=== PATIENT | female | born 1940 | race Hispanic/Latino ===

== ENCOUNTER 2016-10-15 01:48 | Day surgery (SDC) | payer MEDICARE, OTHER ==
[~2016-10-15] VITALS: Ht 157.5 cm; Wt 65.7 kg
[~2016-10-15 01:48] MED LIST: ASAEC PO; OMPR20CCR PO
[2016-10-15] MEDS ORDERED: AMLO2.5T PO (10:23)
[2016-10-15] MEDS ORDERED: CLON0.1T PO (10:23)
[2016-10-15] MEDS ORDERED: ATOR20TA PO (10:23)
[2016-10-15] MEDS ORDERED: CETI5TAB28 PO (10:23)
[2016-10-15] MEDS ORDERED: ASPI-973 PO (10:23)
[2016-10-15] MEDS ORDERED: RIVA20TA PO (10:23)
[2016-10-15] MEDS ORDERED: CARV12.52 PO (10:23)
[2016-10-15] MEDS ORDERED: CHOL200025 PO (10:23)
[2016-10-15] MEDS ORDERED: CARV25TA2 PO (10:23)
[2016-10-15] MEDS ORDERED: FLUT9.9S NOSTRIL (10:23)
[2016-10-15 11:57] LABS: BASOPHILS % (AUTO) 1.7 % (0-3); MONOCYTES % (AUTO) 8.5 % (4-12); Mean Corpuscular Hemoglobin 28.8 pg (27.0-35.0); Mean Corpuscular Volume 86.8 fL (81-100); NEUTROPHILS % (AUTO) 64.5 % (40-74); Platelet Count 242 bil/L (150-400)
[2016-10-15] MEDS ORDERED: Heparin 10,000 Unit/1,000 mL NS Premix IV ONE (11:57)
[2016-10-15] MEDS ORDERED: Heparin 1,000 Units/500 mL NS Premix IV ONE (11:57)
[2016-10-15] MEDS ORDERED: FERR324T5 PO (12:16)
[2016-10-15] MEDS ORDERED: CLON1PAT2 TRANSDERM (12:16)
--- NOTE | 2016-10-15 13:30 | NUR ---
Heart cath Case cancelled today per Dr Posadas. Creatinine serum level to high to proceed - Patient has a right atrophied kidney and is followed by Dr Wren. HX in of significant GI Bleed after starting on Xarelto - pt states she had a "very low blood count of 1 and had 3 bags of blood" Patient stopped Xarelto and has been only taking ASA 81mg PO daily since she was cleared by only a lower GI study. Dr Posadas has spoken to Dr Rider and plan to have Dr Zee to an upper/lower GI study. Dr Zee's Office will contact pt at home with an appointment - Pt to contact Dr Posadas if she has not heard from Dr Zee office.
--- NOTE | 2016-10-15 13:34 | HP ---
[address] [address] HISTORY AND PHYSICAL PATIENT: POLA MCCRARY : 1940 MR#: [id number] ADMIT: 10/15/2016 JOB ID: [id number] DATE OF SERVICE: 10/15/2016 CHIEF COMPLAINT: Chest discomfort. REQUESTED BY: Dr. Rider This patient was seen urgently for consideration of coronary angiography. She is a lady I have performed an angiogram in the past and stented her circumflex. This was in 2012. She normally sees Dr. Rider. She suffers from atrial fibrillation and was started on anticoagulation with Xarelto. She developed severe GI bleeding. Her hemoglobin dropped to 5 as per our records. The patient states it went as low as 1. She was transfused with three units of blood. An endoscopy done did not show any obvious source of bleeding. Since then, the patient has not been rechallenged with anticoagulation. She started complaining of chest discomfort again. This has responded to sublingual nitroglycerin. She had a stress test done. Following that, Dr. Rider requested an urgent cardiac catheterization. The patient states she has not had any significant episodes of chest discomfort in the last few days. Her chest discomfort is not provoked by day to day activities. She denies any history suggestive of heart failure. No orthopnea or PND. MEDICATIONS AT HOME: 1. Amlodipine 2.5 mg a day. 2. Aspirin. 3. Lipitor 20. 4. Carvedilol 25 in the morning, 12.5 in the evening. 5. Cetirizine 10 mg daily. 6. Vitamin D. 7. Clonidine 0.1 daily. 8. Flonase inhalers. 9. Omeprazole. 10. Xarelto which I am not sure that the patient is taking. ALLERGIES: None. PAST MEDICAL HISTORY: Significant for: 1. Chronic kidney disease. Creatinine runs around 2.9. Today it was 3.24. She sees Dr. Wren. 2. Coronary artery disease. 3. Atrial fibrillation. 4. Hypertension. REVIEW OF SYSTEMS: Comprehensive review of system was done and is as per HPI. More pertinently no strokes, no upcoming surgeries and she has not noted any bruising or any obvious blood in her stools. PHYSICAL EXAMINATION: Alert, oriented. Vitals stable. Chest: Clear. Heart sounds S1-S2 irregular. No gallops. Abdomen: Soft. Extremities: Negative for CCE. WEIGHT REDUCING TECHNICIAN: Alert and oriented. LABORATORY DATA: Noted creatinine of 3.27 and hemoglobin of 10. A stress test was reviewed as well. I did not see any obvious areas of ischemia. ASSESSMENT AND PLAN: The patient has stable coronary artery disease. I have advised her to continue with medical therapy and before proceeding ahead with angiography, I would like to consult with Dr. Wren. She is at very high risk for contrast induced nephropathy and might end up on dialysis. In addition, I would like her to have a repeat assessment by gastroenterology before subjecting her to dual antiplatelet therapy. The patient is in agreement with this plan. In the interim, I am increasing starting her on Imdur 60 daily. MTDD
[2016-10-15] MEDS ORDERED: fentaNYL-PF 50 mCg/mL 2 mL Inj ONE (13:35)
[2016-10-15] MEDS ORDERED: Nitroglycerin 50,000 mcg/250 mL D5W Premix IV ONE (13:35)
[2016-10-15] MEDS ORDERED: Heparin 1,000 Unit/mL 10 mL Inj ONE (14:07)
[2016-10-16] MEDS ORDERED: CETI10CA PO (14:21)
[2016-10-16] MEDS ORDERED: CETI5TAB28 PO (14:21)
[2016-10-16] MEDS ORDERED: SODI325T PO (17:42)
[2016-10-16] MEDS ORDERED: FERR324T2 PO (17:42)
[2016-10-16] MEDS ORDERED: HYDR-3939 PO (17:42)
== END 2016-10-15 23:59 | disposition home or self-care (01) ==
LOC: SOUO 01:48
PROVIDERS: ATTEND Internal Medicine Cardiovascular Disease
DX: I25.10 Atherosclerotic heart disease of native coronary artery without angina pectoris (principal); I12.9 Hypertensive chronic kidney disease with stage 1 through stage 4 chronic kidney disease, or unspecified chronic kidney disease; N18.9 Chronic kidney disease, unspecified; I48.91 Unspecified atrial fibrillation; Z79.82 Long term (current) use of aspirin
CPT/HCPCS: 36415; 80048; 85025; 85610; 93005; J2250; J3010; J7030

== ENCOUNTER 2016-10-16 10:49 | Inpatient (IN) | payer MEDICARE, OTHER ==
[2016-10-16] VITALS (10 sets, daily range): BP systolic 123–194; BP diastolic 57–88; PULSE 56–97; RESP 12–55; O2SAT 96–100
[~2016-10-16] VITALS: Ht 160 cm; Wt 68.2 kg
[~2016-10-16 10:49] MED LIST changes: -ASAEC PO; +ASPI-973 PO; +ATOR20TA PO; +CARV25TA2 PO; +CETI5TAB28 PO; +CHOL200025 PO; +CLON1PAT2 TRANSDERM; +FERR324T5 PO; +FLUT9.9S NOSTRIL; -OMPR20CCR PO
[2016-10-16 11:14] LABS: BASOPHILS % (AUTO) 1.2 % (0-3); EOSINOPHILS % (AUTO) 3.5 % (0-5); MONOCYTES % (AUTO) 9.1 % (4-12); Mean Corpuscular Hemoglobin 29.3 pg (27.0-35.0); Mean Corpuscular Volume 87.3 fL (81-100); NEUTROPHILS % (AUTO) 72.3 % (40-74); Platelet Count 209 bil/L (150-400)
--- NOTE | 2016-10-16 11:20 | ED.REPORT ---
HPI-Dizziness / Weakness Date of Service Oct 16, 2016 ED Provider: Idania Morton MD 75 y/o female with a hx of paroxysmal A-fib (stents placed), HTN, peritoneal dialysis and GERD presents to the ED via EMS complaining of lightheadedness, onset a couple of hours ago. The pt was at a card making class when she experienced lower extremity weakness and felt like she was going to pass out. The pt took 2 Nitro for these sx. The pt has experienced similar sx before along with tightness in her neck and was therefore prescribed Nitro by her PCP. She did not experience any neck tightness, chest pain and shortness of breath today but took Nitro because she was concerned. The pt also experienced similar sx previously when she was prescribed clonidine. She was taken off the tablet and put on a patch which seemed to improve her sx. However, her BP continued to stay in 160s and sometimes corrie to 200 so she was put on a second patch a week ago. The pt also complains of extreme fatigue, headache and hematochezia for a few days. She states she saw her GI for the bleeding who recommended taking Iron. The pt denies shortness of breath, diaphoresis, nausea, vomiting, dysuria, fever , dyspnea on exertion, lower extremity edema and hx of DVT. As per her recent stress test, Dr. Posadas increased her amlodipine to 10 . Given the increasing creatinine, he also recommended consult with Dr. Wren and GI before angiography and possible stent placement because of her hx of GI bleeding and necessity of dual anti-platelet therapy . Nursing Notes Stated Complaint: DIZZINESS Chief Complaint: General Complaint Nursing Notes Reviewed: Yes Allergies: Coded Allergies: rivaroxaban (Verified Allergy, Severe, GI bleed, 10/16/16) HCT went to 1 amlodipine (Verified Adverse Reaction, Severe, 10/16/16) swollen ankles hydrocodone (Verified Adverse Reaction, Severe, Nausea, 10/16/16) Post Rotator cuff pain med reaction - nausea losartan (Verified Adverse Reaction, Severe, 10/16/16) Advised not to take because of only one Kidney - the right kidney has atrophied DX 3 years ago Scheduled Aspirin (Aspirin) 81 Mg Tablet 81 MG PO DAILY Atorvastatin (Lipitor) 20 Mg Tablet 20 MG PO Carvedilol (Carvedilol) 25 Mg Tablet 25 MG PO BIDAC Cetirizine HCl (Zyrtec) 10 Mg Capsule 10 MG PO DAILY Cholecalciferol (Vitamin D3) (Vitamin D3) 2,000 Unit Tablet 2,000 UNIT PO DAILY Clonidine 0.2 mg/day Patch (Catapres TTS-2) 1 Each Patch 2 PATCH TRANSDERM WEEKLY Replaces every Thursday. Ferrous Sulfate (Ferrous Sulfate) 324 Mg Tablet.dr 324 MG PO BID Hydralazine (Hydralazine) 25 Mg Tablet 25 MG PO BID Sodium Bicarbonate (Sodium Bicarbonate) 325 Mg Tablet 325 MG PO DAILY Scheduled PRN Fluticasone Propionate (Flonase Allergy Relief) 50 Mcg/Actuation Malone.susp 1 SPRAY NOSTRIL PRN For Congestion Hydralazine (Hydralazine) 25 Mg Tablet 25 MG PO BID PRN PRN For HYPERtension General Time Seen by MD: 10:55 Chief Complaint Lightheaded Hx Obtained From: Patient Arrived By: Ambulance Onset Occurred: 1 - 4 hours ago Symptom Duration: Since onset Severity: Current: No pain currently Severity: Maximum: No pain Recent Healthcare: Recent doctor visit Similar Sx Previous: Yes Past Medical History Past Medical History HTN GERD Peritoneal dialysis Arthritis Paroxysymal A-fib Past Surgical History right shoulder (2002) Smoking History Unknown if Ever Smoker Ambulatory Status Independent Review of Systems Denies: neck tightness Constitutional: Reports: Fatigue, Denies: Fever Respiratory: Denies: Shortness of breath Cardiovascular: Denies: Chest pain, Dyspnea on exertion, Edema GI: Reports: Hematochezia, Denies: Nausea, Vomiting Skin: Denies Diaphoresis Neurologic: Reports: Headache, Lightheaded, Weakness (lower extremities) Complete sys rev & neg: except as marked. Female: Denies: Dysuria Physical Exam Initial Vital Signs Vital Signs (First) Date Time Temp Pulse Resp B/P Pulse Ox O2 Delivery O2 Flow Rate FiO2 10/16/16 10:52 36.8 58 17 146/59 96 Room Air Initial VS: Reviewed Abdomen / GI: Soft, Non-tender, No guarding, No rebound, No distention Extremities: Vascular intact, Neuro intact, No swelling, No tenderness Skin: Warm, Dry, No cyanosis General/Constitutional: Awake, Alert, Cooperative Fatigued Head / Eyes: Atraumatic, Normocephalic, PERRL Respiratory / Chest: Atraumatic, Breath sounds NL, Breath sounds = bilat, No respiratory distress, No rales, No rhonchi, No wheezing Cardiovascular: Regular rhythm, Heart sounds NL, No gallop, No murmurs, No rubs Heart Rate / Rhythm: Positive: Bradycardia No edema Neurologic: Oriented X3, Speech NL, No motor deficits, No sensory deficits Rectum / Perineum: Atraumatic, Blood - occult heme - Dark stool Interpretation & Diagnostics Lab Results Interpretation Result Diagram: 10/16/16 1055 10/16/16 1055 Test 10/16/16 10:55 White Blood Count 5.9th/mm3 (3.8-10.1) Red Blood Count 3.31mil/mm3 (3.90-5.20) Hemoglobin 9.7g/dL (12.0-15.6) Hematocrit 28.9% (35.0-46.0) Mean Corpuscular Volume 87.3fL (81-100) Mean Corpuscular Hemoglobin 29.3pg (27.0-35.0) Mean Corpuscular Hemoglobin Concent 33.6% (32.0-37.0) Red Cell Distribution Width 12.4% (12.3-15.4) Platelet Count 209bil/L (150-400) Neutrophils (%) (Auto) 72.3% (40-74) Lymphocytes (%) (Auto) 13.9% (14-46) Monocytes (%) (Auto) 9.1% (4-12) Eosinophils (%) (Auto) 3.5% (0-5) Basophils (%) (Auto) 1.2% (0-3) Sodium Level 137mEq/L (134-144) Potassium Level 4.9mEq/L (3.5-5.2) Chloride Level 104mEq/L (97-108) Carbon Dioxide Level 17mmol/L (18-29) Blood Urea Nitrogen 59mg/dL (8-27) Creatinine 3.16mg/dL (0.57-1.00) Estimat Glomerular Filtration Rate 20mL/min (>59) Glucose Level 112mg/dL (60-99) Calcium Level 9.6mg/dL (8.5-10.1) Magnesium Level 1.8mg/dL (1.6-2.6) Total Bilirubin 0.5mg/dL (0.0-1.2) Aspartate Amino Transf (AST/SGOT) 17U/L (0-50) Alanine Aminotransferase (ALT/SGPT) 6U/L (0-32) Alkaline Phosphatase 86U/L (25-165) Troponin T 0.010ug/L (0.0-0.011) Pro-B-Type Natriuretic Peptide 2202pg/mL (0-738) Total Protein 6.7g/dL (6.4-8.4) Albumin 3.6g/dL (3.4-5.0) ECG Interpretation ECG Interpretation: Normal sinus rhythm. Rate 60. Left atrial enlargement. Normal axis and normal intervals. Limited in V5 due to artifact otherwise unchanged from 10/15/16 Time: 11:22 Interpreted by: ED physician X-Ray Chest Interpretation Chest Xray Interpretation: IMPRESSION: Bibasilar atelectasis. Otherwise, no radiographic evidence of pathology. Dictated by: Walter Simmons M.D. on 10/16/2016 at 11:40 Approved by: Walter Simmons M.D. on 10/16/2016 at 11:42 View: Portable, 1 view Interpretation / Wet Read by: Interpret - Radiologist Re-Eval/Medical Decision Med Decision/Clinical Course Patient has multiple medical issues are currently ongoing including angina but has newly developed over the past month, worsening renal failure, uncontrolled hypertension, anemia. Patient has multiple specialists working on these conditions is an outpatient, was unable to obtain a cardiac catheterization as an outpatient due to her renal failure as well as history of GI bleed. She is guaiac-negative today however continues to have anemia that has in fact decreased from yesterday, this may be due to IV fluids. Patient was admitted to the hospital for further management and workup of her renal failure, antihypertensive medications, and endoscopy colonoscopy tomorrow in preparation for cardiac catheterization. She felt improvement of her symptoms of lightheadedness in the emergency department, this may be due to patient's difficulty tolerating blood pressures even near normotensive, and because of her increased dose of clonidine plus addition of Imdur. Source of Hx: Old records Re-Evaluation/Progress #1: Time of Eval: 12:39 Re-Evaluation/Progress Note: Rechecked pt. She continues to have a headache. She felt okay standing up without dizziness. Discussed lab results. The pt understands. All questions answered Re-Evaluation/Progress #2: Time of Eval: 13:40 Re-Evaluation/Progress Note: Rechecked pt. Discussed lab results, imaging results, diagnosis and plan to admit. Pt understands and agrees with the plan for admission. All questions addressed. Consultation #1: Referral / Consult Name: Jacob Posadas MD Consulted With: Cardiology Call Returned at: 13:24 Note: Dr. Posadas states he gave her IV fluid yesterday which may be causing the low hemoglobin today. Rather than amlodipine, he added imdur which she took today. He recommends decreasing clonidine and admiting only if GI agrees to scope her today. Consultation #2: Referral / Consult Name: Lei Zee MD Call Returned at: 13:33 Overhead Garage Door Hanger: Will see patient, Agrees with eval, Agrees with plan Note: Dr. Zee will see the pt tomorrow for an endoscopy. He does not think the hospitalist needs to call him. He recommends clear liquid diet. Consultation #3: Referral / Consult Name: Jacob Posadas MD Consulted With: Cardiology Call Returned at: 13:48 Overhead Garage Door Hanger: Will see patient, Agrees with eval, Agrees with plan Note: Dr. Zee will see her tomorrow. No need to consult cardiology today. Consultation #4: Referral / Consult Name: Kenyatta Soares DO Consulted With: Hospitalist Call Returned at: 14:04 Overhead Garage Door Hanger: Will see patient, Agrees with eval, Agrees with plan, Accepts admit Counseled Regarding: Diagnosis, Lab results, Need for admission Patient Discharge & Departure Impression: Primary Impression: Lightheadedness Disposition: ADMITTED TO HOSPITAL Discharge Condition All VS Reviewed: Yes Referrals: Arnoldo Cardona MD (PCP) Scribe Attestation Portions of this note were transcribed by Felisha Hunt. I,, personally performed the history, physical exam and medical decision-making;I reviewed and confirmed the accuracy of the information in the transcribed note. Signed by Prabha Vincent. 10/16/16 14:08 Arnoldo Cardona MD, Sarah C MD Oct 16, 2016 11:20 Felisha Hunt Oct 16, 2016 12:01
[2016-10-16 11:39] LABS: TROPONIN T 0.01 ug/L (0.0-0.011)
--- NOTE | 2016-10-16 11:44 | DRSVH ---
PROCEDURE: X-RAY CHEST ONE VIEW, PORTABLE ([id number]) INDICATIONS: syncope TECHNIQUE: One view of the chest was acquired. COMPARISON: None. FINDINGS: Surgical changes and devices: None. Lungs and pleura: No pleural effusions or pneumothorax. Bibasilar atelectasis otherwise the lungs ar e clear. Mediastinum: Mediastinal contours appear normal. Heart size is normal. Bones and chest wall: No suspicious bony lesions. Overlying soft tissues appear unremarkable. IMPRESSION: Bibasilar atelectasis. Otherwise, no radiographic evidence of pathology. Dictated by: Walter Simmons M.D. on 10/16/2016 at 11:40 Approved by: Walter Simmons M.D. on 10/16/2016 at 11:42
[2016-10-16 12:02] LABS: Magnesium 1.8 mg/dL (1.6-2.6)
[2016-10-16] MEDS ORDERED: CETI10CA PO (14:21)
[2016-10-16] MEDS ORDERED: CETI5TAB28 PO (14:21)
[2016-10-16] MEDS ORDERED: Polyethylene Glycol (PEG) 17 Gm Powder PO PRN (14:35)
[2016-10-16] MEDS ORDERED: Alum-Mag Hydrox-Simeth 30 mL Suspension PO PRN (14:35)
[2016-10-16] MEDS ORDERED: Ondansetron 2 mg/mL 2 mL Inj IVPUSH PRN (14:35)
--- NOTE | 2016-10-16 15:04 | PCM.HPMED ---
Subjective Date of Service Oct 16, 2016 Primary Provider: Admitting Physician: Primary Care Physician: Tima Madrid Attending Physician: Chief Complaint: Dizziness History of Present Illness: Nafisa Cesar is a 75 year old woman past medical history significant for coronary artery disease status post PCI with stent in the circumflex with a MIGUEL in 2012, followed by Dr. Rider, chronic kidney disease followed by Dr. Wren, who presented to the [facility] emergency department today due to a syncopal episode earlier today. Patient had recently undergone a cardiac stress test which was positive and required urgent visit to the cardiac Peat Shredder Tender. The patient was evaluated by Dr. Posadas yesterday and he felt that the patient to proceed with optimal medical treatment in lieu of a angiography given patient's chronic kidney disease and high risk for contrast-induced nephropathy. Per Dr. Posadas he will be in contact with the patient's investigation division sergeant to decide upon risk versus benefit of angiography. Dr. Nicolas would also like the patient to have a repeat upper endoscopy and colonoscopy before subject her to dual platelet therapy due to prior history of GI bleed. Patient has recently had changes to her medications with initiation of Imdur as well as a increase of her clonidine patch to double the dose. Today the patient was going to class and felt quite dizzy. She proceeded to walk a short distance to the class and felt her "legs wobbly." When she reached her class she was concerned that the weakness and dizziness she was feeling was due to a heart attack and decided to take a dose of her Imdur. When this did not work she has had to take a second dose of her Imdur and subsequently had a syncopal episode. Patient was artery sitting in a chair and just slumped over. She denies falls she denies any trauma. This syncopal episode was observed by members of her class and they stated that she was out for 1-2 minutes but then came to. Patient denies any chest pain, chest pressure, back pain, arm weakness or numbness, fever, chills, palpitations, shortness of breath. In the emergency department the patient's vital signs were stable. She was given a full dose of aspirin as well as 1 L of normal saline. The ED physician contacted Dr. Posadas who has agreed to see the patient and will consult tomorrow. She has also kindly contacted Dr. Zee who has agreed to evaluate the patient and proceed with upper endoscopy and colonoscopy tomorrow. Review of Systems: A comprehensive review of systems was conducted with the patient and found to be negative except as above in the History of Present Illness Allergies Coded Allergies: rivaroxaban (Verified Allergy, Severe, GI bleed, 10/16/16) HCT went to 1 amlodipine (Verified Adverse Reaction, Severe, 10/16/16) swollen ankles hydrocodone (Verified Adverse Reaction, Severe, Nausea, 10/16/16) Post Rotator cuff pain med reaction - nausea losartan (Verified Adverse Reaction, Severe, 10/16/16) Advised not to take because of only one Kidney - the right kidney has atrophied DX 3 years ago Home Medications 1. Amlodipine 2.5 mg a day increased to 10 mg recently. 2. Aspirin. 3. Lipitor 20. 4. Carvedilol 25 in the morning, 12.5 in the evening. 5. Cetirizine 10 mg daily. 6. Vitamin D. 7. Clonidine 0.1 daily, recently doubled. 8. Flonase inhalers. 9. Omeprazole. 10. Xarelto, which the patient has not been taking. 11. On license of [facility] Chronic kidney disease followed by Coronary artery disease status post PCI with drug-eluting stent in circumflex in 2013 Atrial fibrillation Hypertension Surgical History Shoulder surgery Endoscopy PCI Family History Father has diabetes and hypertension. Mother has diabetes and hypertension. Parents of "old age." Social History Hx Alcohol Use: Yes (Occational) Hx Substance Use: No Smoking Status: Unknown if Ever Smoker Exam Vital Signs Vital Sign - Last Date Time Temp Pulse Resp B/P Pulse Ox O2 Delivery O2 Flow Rate FiO2 10/16/16 11:52 56 12 123/59 100 Room Air 10/16/16 10:52 36.8 Exam General: No acute distress, well-developed, well-nourished, appropriately interactive HEENT: Normocephalic, atraumatic. External ears without defect. Pupils equal, round, and reactive to light and accommodation. Anicteric sclerae, moist conjunctivae, and no lid lag. Oropharynx free of erythema and cobble stoning with moist mucosa. Neck: Supple with full range of motion. No jugular venous distension. No bruits. No lymphadenopathy or thyromegaly. Cardiovascular: Regular rate and rhythm with no murmurs, rubs, or gallops appreciated Pulmonary: Clear to auscultation bilaterally with no crackles, wheezes, or rhonchi. Normal respiratory effort with no use of accessory muscles. Abdomen: Bowel tones present. Soft, nontender, nondistended. No hepatosplenomegaly or masses appreciated. Extremities: No clubbing, cyanosis, edema, or lymphadenopathy appreciated. Skin: Normal temperature, turgor, and texture; no rash, ulcers, or subcutaneous nodules appreciated. Neurological: Cranial nerves grossly intact. Normal muscle strength, tone, and bulk. Reflexes, coordination, and sensory function within normal limits. No known gait impairment. Psychiatric: Normal mood and affect. Alert and oriented to person, place, and time. Lab and Diagnostics Result Diagram: 10/16/16 1055 10/16/16 1055 X-Rays, CTs and MRIs X-RAY CHEST ONE VIEW, PORTABLE IMPRESSION: Bibasilar atelectasis. Otherwise, no radiographic evidence of pathology. Dictated by: Walter Simmons M.D. on 10/16/2016 at 11:40 12-lead ECG Normal axis, left atrial enlargement, no ST changes Assessment & Plan Nafisa Cesar is a 75 year old woman past medical history significant for coronary artery disease status post PCI with stent in the circumflex with a MIGUEL in 2012, followed by Dr. Rider, chronic kidney disease followed by Dr. Wren, who presented to the [facility] emergency department today due to a syncopal episode earlier today. Syncopal episode, present on admission, active -Likely secondary to increase of patient's blood pressure medication and orthostasis. Compounded with patient taking a nitroglycerin. -We will fluid resuscitate patient. -Patient's 2 clonidine patches have been removed. -We will hold off on clonidine at this time. Will slowly titrate the patient back on her blood pressure medications. -Hold nitroglycerin. -Telemetry monitoring -Orthostatics -Fall precaution Coronary artery disease status post stenting in the circumflex with the DSE in 2012 with a positive stress test, present on admission, active -Patient has been evaluated by who would like her to be evaluated with an upper endoscopy as well as a colonoscopy due to past history of severe GI bleed on the rolled to -He believes that the risk of coronary angiography may outweigh the benefit due to the patient's chronic kidney disease and high risk for development of consciousness and his nephropathy. -However patient would benefit from a GI investigation before being initiated on dual antiplatelet therapy. Past history of severe GI bleed -Patient will be evaluated by with a planned EGD and colonoscopy tomorrow -Clear liquid diet -Bowel prep tonight -Guaiac negative Acute kidney injury on Chronic kidney disease, present on admission, improving -Baseline Cr is around 2.[address] Posadas -Yesterday's measurement was 3.27 -Continue fluids as above Atrial fibrillation, present on admission, active -Patient not taking her anticoagulation at this time. Will need to revisit after EGD and C-scope. -Continue Carvedilol CODE STATUS: Full code Patient is admitted under inpatient status with expected length of stay greater than 2 midnights due to severity of presenting symptoms, risk of adverse event, and complexity of treatment plan. VTE Prophylaxis: Sub-Q Heparin (Unfractionated) Resuscitation Status: CPR: Attempt Resuscitation Kenyatta Soares DO Oct 16, 2016 14:07 Garland Mora MD Oct 17, 2016 11:11
[2016-10-16] MEDS: 0.9% Sodium Chloride 1,000 ML IV SCH (15:08)
[2016-10-16] MEDS: Heparin 5,000 Unit/mL Inj SUBQ SCH ×2 (17:06→20:18)
[2016-10-16] MEDS ORDERED: HYDR-3939 PO (17:42)
[2016-10-16] MEDS ORDERED: SODI325T PO (17:42)
[2016-10-16] MEDS ORDERED: FERR324T2 PO (17:42)
--- NOTE | 2016-10-16 18:34 | NUR ---
Admit Patient arrived on unit via gurney. Patient alert and oriented. Patient stated that she had some neck tightness today and took a nitro, then took a second one and nearly passed out and was brought to the ER by EMS. Patient to have endoscopy tomorrow afternoon. Patient reports some headache pain. Denies shortness of breath, chest pain, pain, nausea or current dizziness. Patient reports KAVITA and uses her own CPAP but does not have it with her. Continuous pulse ox in room to use during sleep.
--- NOTE | 2016-10-16 19:40 | NUR ---
Case Management: TONY explained to patient at 1930, all questions answered. Signed original placed in chart, patient given a copy. Pt refused the Medicare Part D Drug information sheet. Rebeka Campos RN
[2016-10-16] MEDS ORDERED: PEG/Electrolytes 4,000 mL Solution TUBE ONE (20:05)
--- NOTE | 2016-10-16 21:33 | PCM.CHPMED ---
Subjective Date of Service: Oct 16, 2016 Provider requesting consult: Kenyatta Soares DO Primary Physician: Admitting Physician: Garland Mora MD [facility]ending [facility]: Garland Mora MD Admit Status: From the Emergency Department Chief Complaint: Chief Complaint: Syncope, rule out GI bleed History of Present Illness: Patient is a 75-year-old woman with coronary artery disease, chronic kidney disease, GERD, and GI bleed on Xarelto in November 2015. Patient was seen for exercise treadmill stress test which resulted in recommendation of cardiac catheterization. Dr. Posadas was consulted, he would like to proceed with angiography however she is concerned about contrast-induced nephropathy and additionally her history of GI bleed. Patient is anemic with a hemoglobin of 9.7. Before patient is placed on dual antiplatelet therapy which would be required after angioplasty cardiology would like to confirm that she is not currently experiencing a GI bleed, and has no obvious anatomical findings that would predispose her to a GI bleed once placed on dual antiplatelet therapy. This plan was initiated yesterday however the patient had a syncopal episode after taking Imdur due to chest pain and dizziness. Patient reports persistent headache and shortness of breath on exertion but is otherwise feeling well. She is not currently having any chest pain, nausea, vomiting, or overt signs of bleeding. She does report recent dark stool however she was started on iron just last Thursday. She has had no hematochezia Previous GI bleed was in the setting of Xarelto in November 2015 at [facility]. She received 3 units of blood, she underwent upper and lower endoscopy both of which had no findings to explain bleeding source. No pill endoscopy was done. Review of Systems: A comprehensive review of systems was conducted with the patient and found to be negative except as above in the History of Present Illness. PMH Past Medical History Chronic kidney disease followed by Dr. 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 Coronary artery disease status post percutaneous intervention drug-eluting stent in circumflex artery in 2012 GI bleed in November 2015 while on Xerelto patient was seen at [facility] GERD in which patient occasionally takes Tums for. Atrial fibrillation Hypertension Surgical History Last EGD and colonoscopy were in November 2015 PCI in 2012 Right shoulder rotator cuff repair Home Medications 1. Amlodipine 2.5 mg a day increased to 10 mg recently. 2. Aspirin. 3. Lipitor 20. 4. Carvedilol 25 in the morning, 12.5 in the evening. 5. Cetirizine 10 mg daily. 6. Vitamin D. 7. Clonidine 0.1 daily, recently doubled. 8. Flonase inhalers. 9. Omeprazole. 10. Hydralazine twice a day 11. Imdur Allergies: Coded Allergies: rivaroxaban (Verified Allergy, Severe, GI bleed, 10/16/16) HCT went to 1 amlodipine (Verified Adverse Reaction, Severe, 10/16/16) swollen ankles hydrocodone (Verified Adverse Reaction, Severe, Nausea, 10/16/16) Post Rotator cuff pain med reaction - nausea losartan (Verified Adverse Reaction, Severe, 10/16/16) Advised not to take because of only one Kidney - the right kidney has atrophied DX 3 years ago Family History Family History No known family history of colon cancer, inflammatory bowel disease, or celiac disease. Social History Hx Alcohol Use: Yes (Occational)Hx Substance Use: No Smoking Status: Unknown if Ever Smoker Exam Vital Signs Vital Sign - Last Date Time Temp Pulse Resp B/P Pulse Ox O2 Delivery O2 Flow Rate FiO2 10/16/16 20:20 36.8 72 18 194/87 99 Room Air General: Alert, Oriented X3, Cooperative, No Acute Distress Head: Normal Eyes: PERRLA Mouth: Mouth Normal, Mucous Membr Moist/[place] Neck: Supple Chest & Lungs: Auscultation (clear bilaterally) Cardiovascular: Regular Rate/Rhythm, No Murmurs/Rubs/Gallops Abdomen: Non-tender, Non-distended, Soft Extremities: No cyanosis/clubbing/edma bilat Neurological: Grossly Neurologically Intact Lab and Diagnostics Result Diagram: 10/16/16 1055 10/16/16 1055 X-Rays, CTs and MRIs X-RAY CHEST ONE VIEW, PORTABLE IMPRESSION: Bibasilar atelectasis. Otherwise, no radiographic evidence of pathology. Dictated by: Walter Simmons M.D. on 10/16/2016 at 11:40 Assessment & Plan Assessment 75-year-old female with coronary artery disease, GERD, normocytic anemia, and history of GI bleed in November 2015 presents with an episode of syncope in the setting of abnormal stress test necessitating cardiac catheterization with likely angioplasty. Before patient undergoes dual antiplatelet therapy GI bleed needs to be ruled out. Recommendations: Plan for upper and lower endoscopy tomorrow afternoon Colyte bowel prep tonight, half in the morning Nothing by mouth after morning bowel prep is complete Thank you for allowing us to participate in the care of this fahad patient. Problems: Pain Evaluation: Adequate Pain Control VTE Prophylaxis: Sub-Q Heparin (Unfractionated) Resuscitation Status: CPR: Attempt Resuscitation Attending Statement Patient seen and examined. Agree with assessment and plan as described by Dr Joseph. copies to: Lei Zee MD, Erika R DO Oct 16, 2016 21:33 Lei Zee MD Oct 16, 2016 21:51
[2016-10-17] VITALS (12 sets, daily range): BP systolic 121–202; BP diastolic 57–94; PULSE 63–87; RESP 14–20; O2SAT 96–99
[2016-10-17] MEDS: 0.9% Sodium Chloride 1,000 ML IV SCH ×2 (01:14→12:07)
--- NOTE | 2016-10-17 06:19 | NUR ---
BP/JO Pt's SBP in the beginning of the shift was 194-202. Rec'd an order for hydralazine and given. SBP now in 180s. Tylenol given for headache with moderate relief. able to sleep most of the night Pt begun drinking golytely prep @20:00. Had about 1L in and became slightly nauseous with it. Pt has been having dark watery stool this shift. Pt takes Iron supplement. will resume golytely prep this AM per MD's order.
[2016-10-17] MEDS: Heparin 5,000 Unit/mL Inj SUBQ SCH ×3 (07:37→17:49)
[2016-10-17 09:19] LABS: BASOPHILS % (AUTO) 1.5 % (0-3); EOSINOPHILS % (AUTO) 3.2 % (0-5); MONOCYTES % (AUTO) 9.4 % (4-12); Mean Corpuscular Hemoglobin 28.8 pg (27.0-35.0); Mean Corpuscular Volume 86.5 fL (81-100); NEUTROPHILS % (AUTO) 69.2 % (40-74); Platelet Count 166 bil/L (150-400)
[2016-10-17] MEDS ORDERED: fentaNYL-PF 50 mCg/mL 2 mL Inj ONE (09:43)
[2016-10-17] MEDS ORDERED: Propofol 10,000 mCg/mL 20 mL Inj ONE (09:43)
[2016-10-17] MEDS ORDERED: Labetalol 5 mg/mL 4 mL Inj IVPUSH PRN (10:25)
--- NOTE | 2016-10-17 10:58 | NUR ---
High BP Received report at shift change of high BP through the night, scheduled BP meds given approx 0730. VS at 1025 BP was 202/97, notified, new prescription for BP input and meds given approx 1050. Continuing to monitor
--- NOTE | 2016-10-17 11:23 | NUR ---
Case Management- IMM explained and signed by patient. Copy given to patient. Original placed in chart. Jessenia WITT/ CHRISSIE
--- NOTE | 2016-10-17 14:32 | PCM.PNMED ---
Subjective Date of Service Oct 17, 2016 Subjective BP uncontrolled,clonidine patch replaced. going for EGD/colonoscopy today. cardiac cath on Thursday after optimizing BP and CKD Exam Vital Signs Vital Sign - Last Date Time Temp Pulse Resp B/P Pulse Ox O2 Delivery O2 Flow Rate FiO2 10/17/16 12:11 175/75 10/17/16 11:47 87 10/17/16 10:17 36.6 20 99 Room Air Intake and Output 10/16/16 10/16/16 10/17/16 Cumulative From/Thru 15:00 23:00 07:00 10/16/16 10:52 - 10/17/16 04:57 Intake Total 150 ml 400 ml 1012 ml 1562 ml Output Total 600 ml 600 ml Balance 150 ml -200 ml 1012 ml 962 ml Intake Oral 400 ml 400 ml IV Total 150 ml 1012 ml 1162 ml Output Urine Total 600 ml 600 ml # Bowel Movements 0 0 Exam General: No acute distress, well-developed, well-nourished, appropriately interactive HEENT: Normocephalic, atraumatic. External ears without defect. Pupils equal, round, and reactive to light and accommodation. Anicteric sclerae, moist conjunctivae, and no lid lag. Oropharynx free of erythema and cobble stoning with moist mucosa. Neck: Supple with full range of motion. No jugular venous distension. No bruits. No lymphadenopathy or thyromegaly. Cardiovascular: Regular rate and rhythm with no murmurs, rubs, or gallops appreciated Pulmonary: Clear to auscultation bilaterally with no crackles, wheezes, or rhonchi. Normal respiratory effort with no use of accessory muscles. Abdomen: Bowel tones present. Soft, nontender, nondistended. No hepatosplenomegaly or masses appreciated. Extremities: No clubbing, cyanosis, edema, or lymphadenopathy appreciated. Skin: Normal temperature, turgor, and texture; no rash, ulcers, or subcutaneous nodules appreciated. Neurological: Cranial nerves grossly intact. Normal muscle strength, tone, and bulk. Reflexes, coordination, and sensory function within normal limits. No known gait impairment. Psychiatric: Normal mood and affect. Alert and oriented to person, place, and time. IVs and Medications Medications Reviewed: Medications were reviewed in detail Lab and Diagnostics Result Diagram: 10/17/16 0900 10/17/16 0900 X-Rays, CTs and MRIs X-RAY CHEST ONE VIEW, PORTABLE IMPRESSION: Bibasilar atelectasis. Otherwise, no radiographic evidence of pathology. Dictated by: Walter Simmons M.D. on 10/16/2016 at 11:40 12-lead ECG Normal axis, left atrial enlargement, no ST changes Assessment & Plan Nafisa Cesar is a 75 year old woman past medical history significant for coronary artery disease status post PCI with stent in the circumflex with a MIGUEL in 2012, followed by Dr. Rider, chronic kidney disease followed by Dr. Wren, who presented to the [facility] emergency department today due to a syncopal episode earlier today. # Syncopal episode/labile BP/rebound HTN , present on admission, active -Likely secondary to increase of patient's blood pressure medication and orthostasis. Compounded with patient taking a nitroglycerin. -We will fluid resuscitate patient. -Patient's 2 clonidine patches have been removed.now with rebound HTN . replaced clonidine -nephrology consulted -Telemetry monitoring -Orthostatics -Fall precaution # Coronary artery disease status post stenting in the circumflex with the DSE in 2012 with a positive stress test, present on admission, active -Patient has been evaluated by who would like her to be evaluated with an upper endoscopy as well as a colonoscopy due to past history of severe GI bleed on the rolled to -He believes that the risk of coronary angiography may outweigh the benefit due to the patient's chronic kidney disease and high risk for development of consciousness and his nephropathy. -However patient would benefit from a GI investigation before being initiated on dual antiplatelet therapy.EGD/colonoscopy today - cardiac cath on Thursday after optimizing BP and CKD per Dr Posadas # Past history of severe GI bleed -Patient will be evaluated by with a planned EGD and colonoscopy today -Guaiac negative # Acute kidney injury on Chronic kidney disease, present on admission, improving -Baseline Cr is around 2.[address] Posadas -Yesterday's measurement was 3.27 -discontinue fluids today # Atrial fibrillation, present on admission, active -Patient not taking her anticoagulation at this time. Will need to revisit after EGD and C-scope. -Continue Carvedilol CODE STATUS: Full code disposition : 2-3 days .going for EGD/colonoscopy today to r/o GI bleed.will need to optimize BP and CKD ,cardiac cath on Thursday patient needs coordinated service between GI,nephrology and cardiology .she has HTN urgency ,needs inpatient service VTE Prophylaxis: Sub-Q Heparin (Unfractionated) Resuscitation Status: CPR: Attempt Resuscitation Garlnad Mora MD Oct 17, 2016 14:32 Garland Mora MD Oct 17, 2016 14:32
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
[2016-10-17] MEDS ORDERED: Lactated Ringer's 1,000 ML IV ONE (16:29)
--- NOTE | 2016-10-17 16:35 | CONS ---
[address] [address] CONSULTATION REPORT PATIENT: POLA MCCRARY : 1940 MR#: [id number] ADMIT: 10/16/2016 JOB ID: [id number] DATE OF SERVICE: 10/17/2016 REQUESTING PHYSICIAN: Garland Mora MD. REASON FOR CONSULTATION: Management of chronic kidney disease and hypertension. CHIEF COMPLAINT: Syncope. PRESENT ILLNESS: This is a 75-year-old lady with significant past medical history of stage 4 chronic kidney disease, hypertension, coronary artery disease, status post stenting, dyslipidemia, who presented to the hospital after the episode of syncope. The patient reported that on the day of the admission, she was attending a class when she became lightheaded and wobbly. The patient passed out after the 2nd dose of Imdur. She was out approximately 1-2 minutes and afterwards she regained the consciousness. The patient is known to have chronic kidney disease, currently at stage 4. She is a patient of Dr. Azam Wren. She is known to have one functioning left kidney with underlying disease of right atrophic kidney. She had history of chronic NSAID use. She is not diabetic. She was diagnosed with hypertension in 2012 when she had stent placement. She has no history of gout, no history of nephrolithiasis or vasculitis. Recently, the patient also was found to have a positive stress test and that required cardiac cath. Given the fact that she has chronic kidney disease, pursuing angioplasty will put her at risk of contrast-induced nephropathy and may require dialysis. Of note, the patient has history of GI bleed. Today, she will undergo EGD and colonoscopy, since if antiplatelet is indicated. During my visit, the patient has no chest pain, no shortness of breath. Over the past 24 hour, her blood pressure has been elevated. She reported that since she has been here, she is not on clonidine patch. Recently clonidine patch was increased from 0.1 mg per 24 hours to 0.2 mg per 24 hours. She also takes carvedilol and hydralazine 25 mg twice a day. She reported history of lower extremity swelling from taking amlodipine. The patient received IV fluid. Her repeat creatinine is 2.34. According to the record of Dr. Wren in August 2016, her estimated EGFR was around 16-17. PAST MEDICAL HISTORY: 1. Stage 4 chronic kidney disease, history of chronic NSAID use. 1. Right kidney atrophy. 2. Atrial fibrillation. 3. Hypertension. 4. Coronary artery disease, status post stenting. 5. Dyslipidemia. PAST SURGICAL HISTORY: Shoulder surgery. Endoscopy. Status post stenting in the left circumflex. FAMILY HISTORY: Positive for diabetes, hypertension in parents. SOCIAL HISTORY: She drinks occasionally. She denies current use of tobacco or illicit drugs. ALLERGIES: 1. AMLODIPINE. 2. HYDROCODONE. 3. LOSARTAN. 4. RIVAROXABAN. REVIEW OF SYSTEMS: A 14-point review of system was performed. PHYSICAL EXAMINATION: Vitals: Temperature 36.6, pulse 87, respiratory 20, blood pressure 175/75. O2 sat 99% on room air. General appearance: Awake, alert, oriented x3. No acute distress. HEENT: Atraumatic. Moist mucous membranes. PERRLA, mild pallor. No icteric sclerae. No JVD. No lymphadenopathy. No thyroid enlargement. Heart: Regular rhythm. Normal S1, S2. No murmurs, rubs, or gallops. Lungs: Clear to auscultation bilaterally. No wheezing. No rhonchi. Abdomen soft, active bowel sounds. Nontender. Nondistended. No hepatosplenomegaly. Extremities: No edema, cyanosis or clubbing of fingers. LABORATORY: Sodium 141, potassium 4.8, chloride 112, bicarb 18, BUN 41, creatinine 2.34. WBC 4.7, hemoglobin 9.4, platelets 166. ASSESSMENT: 1. Syncope. 2. Positive stress test with underlying disease of coronary artery disease, status post stenting. 3. Uncontrolled hypertension, suspected rebound hypertension. 4. Stage 4 chronic kidney disease. Baseline serum creatinine around 2.9-3. 5. History of severe gastrointestinal bleed. 6. Atrial fibrillation. The patient has received normal saline over 24 hours. Currently, her blood pressure is on the high side. We will discontinue normal saline and will start hydration again 24 hours prior to the cardiac angiogram. Will continue carvedilol. We will resume clonidine patch since she likely has rebound hypertension. The patient is unable to take Norvasc given lower extremity edema. Per allergy list, she also is allergic to LOSARTAN. If her blood pressure remains uncontrolled despite being on clonidine patch we will consider adding Aldactone or resume low-dose amlodipine. For now, we will monitor her blood pressure and she will be on IV labetalol as needed if the systolic blood pressure goes over 200. Thank you for allowing me to participate in the care of your patient. We will monitor along with you.
--- NOTE | 2016-10-17 17:11 | PCM.ANEP1 ---
Post Anesthesia PACU Phase 1 Assessment Date of Service: Oct 17, 2016 Vital Signs 121/75 79 10 97% Anesthetic Administered: MAC Level of Alertness: Sleepy, easy to arouse ALDANA's with Equal Strength: Yes Pain: No (Level 2 - headache) Pain Scale Score: 3 Nausea or Vomiting: No CV Function & Hydration Stable: Yes Airway Device: Oxygen Delivery: Room Air Lungs: Clear to Auscultation, Normal Air Movement PACU Phase 2 Assessment Complications: No Follow up Care: No Patient Instructions Provided: Yes Luis Morales MD Oct 17, 2016 17:11
--- NOTE | 2016-10-17 17:31 | ENDO ---
[address] [address] ENDOSCOPY PROCEDURE PATIENT: POLA MCCRARY : 1940 MR#: [id number] ADMIT: 10/16/2016 JOB ID: [id number] DATE OF PROCEDURE: 10/17/2016 PROCEDURE: Esophagogastroduodenoscopy and colonoscopy. INDICATIONS: A 75-year-old female with a history of GI bleed of uncertain etiology. Negative endoscopy workup in the fall of 2015. She is admitted here at [facility] once again for consideration of percutaneous coronary intervention. She has mild anemia and is currently heme negative. There is concern that proceeding with advanced cardiac therapeutics will require further anticoagulation and other high-risk medications in light of this history. EGD and colonoscopy were thus requested. EQUIPMENT: GIFH-180J and PCFH-180AL. SEDATION: Monitored anesthesia as provided by Dr. Luis Morales. COMPLICATIONS: None identified. BOWEL PREPARATION: Fair, adequate exam. PROCEDURE INFORMATION: After the risks and benefits were explained, written and verbal informed consent was obtained. The patient was brought into the endoscopy suite and placed into the left lateral decubitus position. Sedation was achieved as above. The scope was introduced into the mouth through the bite block, and advanced to the second portion of the duodenum. The scope was slowly withdrawn to carefully examine the mucosa for any defects or lesions. Retroflexed views were accomplished in the stomach. The stomach was decompressed. The scope removed from the patient who tolerated the procedure well. The patient was then turned around. A digital rectal examination accomplished. No significant pathology apart from some mild internal hemorrhoids. The scope was introduced into the rectum and advanced under direct visualization to the level of the cecum, as identified by the appendiceal orifice and ileocecal valve. The terminal ileum was briefly accessed. The scope then slowly withdrawn to carefully examine the mucosa for any defects or lesions. Multiple direct views were made through the dentate line for exclusion of pathology. The colon was decompressed. The scope removed from the patient who tolerated the procedure well. FINDINGS: 1. Duodenum: No pathology appreciated from the bulb through to the second portion. 2. Stomach: Mild diffuse gastropathy. No ulcers. No mass lesions. No vascular pathology. No outlet obstruction. Retroflexed views disclosed a small sliding hiatal hernia. 3. Esophagus: The squamocolumnar junction correlated with the top of the gastric folds. The GEJ was at approximately 38 cm from the incisors. No acute erosive changes. No strictures. No mass lesions. 4. Terminal ileum: This appeared visually normal. 5. Colon: The patient had rather extensive diverticulosis through the sigmoid region. I did not appreciate any significant polyps, mass lesions, or inflammatory features throughout the colon and rectum. I did not see any evidence of angiodysplasia or AVMs. The patient had some scattered subepithelial hemorrhages in the right colon not uncommonly seen in patients with some mild artifact created by the mechanical bowel prep. ENDOSCOPIC DIAGNOSES: 1. Small sliding hiatal hernia. 2. Minimal gastropathy. 3. Otherwise visually unremarkable esophagogastroduodenoscopy. 4. Colonic diverticulosis. 5. Mild internal hemorrhoids. RECOMMENDATIONS: 1. The patient's diet is advanced. 2. From a gastroenterology perspective, the patient can be discharged home at the discretion of his primary and cardiology services. 3. Depending on the urgency of the patient's intended cardiac procedure, if there is any opportunity for delay, we could certainly pursue an outpatient capsule endoscopy to complete the workup. If desired this could be accomplished early this coming week.
--- NOTE | 2016-10-17 18:09 | NUR ---
Heparin refusal Pt refusing heparin today r/t hx of GI bleeding
[2016-10-18] VITALS (11 sets, daily range): BP systolic 107–222; BP diastolic 58–102; PULSE 70–120; RESP 16–18; O2SAT 95–98
[2016-10-18] MEDS: Heparin 5,000 Unit/mL Inj SUBQ SCH ×3 (00:30→16:53)
[2016-10-18] MEDS ORDERED: Labetalol 5 mg/mL 20 mL Inj IVPUSH PRN (03:53)
--- NOTE | 2016-10-18 08:30 | NUR ---
HTN Morning BP at 220/90, HR 72. Administered AM medications (Coreg). BP reduced to 150/72. MD informed. BP followed, increased to 171/69. New orders for 50mg Hydralazine TID. BP reduced to 150/69. Continuing to monitor.
[2016-10-18] MEDS ORDERED: Diltiazem 5 mg/mL 5 mL Inj IVPUSH ONE (13:00)
--- NOTE | 2016-10-18 13:13 | NUR ---
Evaluation completed. Please go to "Notes" then click on "Assessments and Notes" (bottom left corner of screen). Then select appropriate discipline tab on top of screen.
--- NOTE | 2016-10-18 13:15 | NUR ---
AFIB Tele reports pt in Afib 110-120's. Pt reports to be mostly asymptomatic with some throat tightness. informed, new orders placed. IV Push 10mg Cardizem and STAT labs. Pt running Afib 130s at time of administration. Post admin Tele: Afib 70-80's paged to update.
[2016-10-18 13:18] LABS: BASOPHILS % (AUTO) 0.8 % (0-3); EOSINOPHILS % (AUTO) 2.2 % (0-5); MONOCYTES % (AUTO) 11.1 % (4-12); Mean Corpuscular Volume 87.1 fL (81-100); NEUTROPHILS % (AUTO) 72.4 % (40-74); Platelet Count 223 bil/L (150-400)
[2016-10-18 14:14] LABS: Magnesium 1.5 mg/dL (1.6-2.6)
[2016-10-18 14:15] LABS: TROPONIN T < 0.010 ug/L (0.0-0.011)
--- NOTE | 2016-10-18 14:17 | PCM.PNNEPH ---
Subjective Date of Service Oct 18, 2016 Subjective BP remains elevated. Afib with RVR noted in am, IV cardizem given. No CP/SOB. Exam Vital Signs Vital Sign - Last Date Time Temp Pulse Resp B/P Pulse Ox O2 Delivery O2 Flow Rate FiO2 10/18/16 11:57 108 10/18/16 10:51 171/69 10/18/16 08:35 36.7 16 97 Room Air Intake and Output 10/17/16 10/17/16 10/18/16 Cumulative From/Thru 15:00 23:00 07:00 10/16/16 10:52 - 10/17/16 18:35 Intake Total 1720 ml 1425 ml 4707 ml Output Total 1400 ml 1175 ml 3175 ml Balance 320 ml 250 ml 1532 ml Intake Oral 1000 ml 1425 ml 2825 ml IV Total 720 ml 1882 ml Output Urine Total 1400 ml 1175 ml 3175 ml # Bowel Movements 4 7 11 Exam General appearance: Awake, alert, oriented x3. No acute distress. HEENT: Atraumatic. Moist mucous membranes. PERRLA, mild pallor. No icteric sclerae. No JVD. No lymphadenopathy. No thyroid enlargement. Heart: Regular rhythm. Normal S1, S2. No murmurs, rubs, or gallops. Lungs: Clear to auscultation bilaterally. No wheezing. No rhonchi. Abdomen soft, active bowel sounds. Nontender. Nondistended. No hepatosplenomegaly. Extremities: No edema, cyanosis or clubbing of fingers. Lab and Diagnostics Result Diagram: 10/18/16 1311 10/17/16 0900 X-Rays, CTs and MRIs X-RAY CHEST ONE VIEW, PORTABLE IMPRESSION: Bibasilar atelectasis. Otherwise, no radiographic evidence of pathology. Dictated by: Walter Simmons M.D. on 10/16/2016 at 11:40 12-lead ECG Normal axis, left atrial enlargement, no ST changes Plan Impression ASSESSMENT: 1. Syncope. 2. Positive stress test with underlying disease of coronary artery disease, status post stenting. 3. Uncontrolled hypertension, suspected rebound hypertension. 4. Stage 4 chronic kidney disease. Baseline serum creatinine around 2.9-3. 5. History of severe gastrointestinal bleed. 6. Atrial fibrillation. Plan: consider starting diltiazem for a better HR control. notify cardiology. continue coreg and clonidine patch. IV labetalol PRN. check orthostatic BP. Tristen Thomson MD Oct 18, 2016 14:17
[2016-10-18] MEDS ORDERED: Magnesium Sulf 4 Gm/100 mL H2O 4 GM in IV Premix 1 EACH IV ONE (14:30)
[2016-10-18] MEDS: Diltiazem CD 120 mg ER24 Capsule PO SCH (14:47)
--- NOTE | 2016-10-18 16:04 | PCM.PNMED ---
Subjective Date of Service Oct 18, 2016 Subjective Blood pressure remained uncontrolled. Required labetalol injections this morning for BP 218/101. Endoscopy/colonoscopy unrevealing. Went into rapid A. fib this morning, responded to Cardizem 10 mg IV push. Went into rapid A. fib again, started Cardizem XR 120 daily. Amlodipine 2.5 mg started by nephrology. Hydralazine discontinued to avoid rebound tachycardia. Exam Vital Signs Vital Sign - Last Date Time Temp Pulse Resp B/P Pulse Ox O2 Delivery O2 Flow Rate FiO2 10/18/16 14:56 116 159/95 10/18/16 14:54 37.2 18 96 Room Air Intake and Output 10/17/16 10/17/16 10/18/16 Cumulative From/Thru 15:00 23:00 07:00 10/16/16 10:52 - 10/17/16 18:35 Intake Total 1720 ml 1425 ml 4707 ml Output Total 1400 ml 1175 ml 3175 ml Balance 320 ml 250 ml 1532 ml Intake Oral 1000 ml 1425 ml 2825 ml IV Total 720 ml 1882 ml Output Urine Total 1400 ml 1175 ml 3175 ml # Bowel Movements 4 7 11 Exam General: No acute distress, well-developed, well-nourished, appropriately interactive HEENT: Normocephalic, atraumatic. External ears without defect. Pupils equal, round, and reactive to light and accommodation. Anicteric sclerae, moist conjunctivae, and no lid lag. Oropharynx free of erythema and cobble stoning with moist mucosa. Neck: Supple with full range of motion. No jugular venous distension. No bruits. No lymphadenopathy or thyromegaly. Cardiovascular: Regular rate and rhythm with no murmurs, rubs, or gallops appreciated Pulmonary: Clear to auscultation bilaterally with no crackles, wheezes, or rhonchi. Normal respiratory effort with no use of accessory muscles. Abdomen: Bowel tones present. Soft, nontender, nondistended. No hepatosplenomegaly or masses appreciated. Extremities: No clubbing, cyanosis, edema, or lymphadenopathy appreciated. Skin: Normal temperature, turgor, and texture; no rash, ulcers, or subcutaneous nodules appreciated. Neurological: Cranial nerves grossly intact. Normal muscle strength, tone, and bulk. Reflexes, coordination, and sensory function within normal limits. No known gait impairment. Psychiatric: Normal mood and affect. Alert and oriented to person, place, and time IVs and Medications Medications Reviewed: Medications were reviewed in detail Lab and Diagnostics Result Diagram: 10/18/16 1311 10/18/16 1311 X-Rays, CTs and MRIs X-RAY CHEST ONE VIEW, PORTABLE IMPRESSION: Bibasilar atelectasis. Otherwise, no radiographic evidence of pathology. Dictated by: Walter Simmons M.D. on 10/16/2016 at 11:40 12-lead ECG Normal axis, left atrial enlargement, no ST changes Assessment & Plan Nafisa Cesar is a 75 year old woman past medical history significant for coronary artery disease status post PCI with stent in the circumflex with a MIGUEL in 2012, followed by Dr. Rider, chronic kidney disease followed by Dr. Wren, who presented to the [facility] emergency department today due to a syncopal episode earlier today. # Syncopal episode , present on admission, active -Likely secondary to increase of patient's blood pressure medication and orthostasis. Compounded with patient taking a nitroglycerin. -We will fluid resuscitate patient. -Patient's 2 clonidine patches have been removed.now with rebound HTN . replaced clonidine -nephrology consulted -Telemetry monitoring -Fall precaution # Hypertensive urgency/labile BP/rebound HTN -Patient had multiple BP medication adjustments recently -BP remains uncontrolled. Clonidine patch replaced. Continue Coreg. - Required labetalol injections this morning for BP 218/101. Amlodipine 2.5 mg started by nephrology. Hydralazine discontinued to avoid rebound tachycardia. Unable to use ACEI/ARB due to upcoming cardiac cath # Atrial fibrillation with rapid response on 10/18, present on admission, active -Patient not taking her anticoagulation at this time. EGD and C-scope unrevealing. Differ anticoagulation to cardiology after cardiac catheterization -Continue Carvedilol -Patient went into rapid A. fib today 10/18. Cardizem 20 mg IV push given, rate controlled. Went into rapid A. fib again, started Cardizem Xr 120mg daily. Discontinued hydralazine to avoid rebound tachycardia. # Coronary artery disease status post stenting in the circumflex with the DSE in 2012 with a positive stress test, present on admission, active -Patient has been evaluated by who would like her to be evaluated with an upper endoscopy as well as a colonoscopy due to past history of severe GI bleed on the rolled to -He believes that the risk of coronary angiography may outweigh the benefit due to the patient's chronic kidney disease and high risk for development of consciousness and his nephropathy. -However patient would benefit from a GI investigation before being initiated on dual antiplatelet therapy.EGD/colonoscopy today - cardiac cath on Thursday after optimizing BP and CKD per Dr Posadas # Past history of severe GI bleed - EGD and colonoscopy10/17 unrevealing -Guaiac negative # Acute kidney injury on Chronic kidney disease, present on admission, improving -Baseline Cr is around 2.[address] Posadas -Yesterday's measurement was 3.27 -discontinue fluids today CODE STATUS: Full code disposition : 2-3 days .going for EGD/colonoscopy today to r/o GI bleed.will need to optimize BP and CKD ,cardiac cath on Thursday patient needs coordinated service between GI,nephrology and cardiology .she has HTN urgency ,needs inpatient service VTE Prophylaxis: Sub-Q Heparin (Unfractionated) VTE Mechanical Devices: Intermittant Pneumatic CD Resuscitation Status: CPR: Attempt Resuscitation Garland Mora MD Oct 18, 2016 16:04
[2016-10-19] VITALS (8 sets, daily range): BP systolic 118–175; BP diastolic 65–92; PULSE 58–74; RESP 18; O2SAT 95–97
[2016-10-19] MEDS: Heparin 5,000 Unit/mL Inj SUBQ SCH ×3 (00:30→17:11)
[2016-10-19] MEDS: Diltiazem CD 120 mg ER24 Capsule PO SCH (07:29)
[2016-10-19 09:19] LABS: BASOPHILS % (AUTO) 0.9 % (0-3); EOSINOPHILS % (AUTO) 2.6 % (0-5); MONOCYTES % (AUTO) 8.7 % (4-12); Mean Corpuscular Hemoglobin 28.9 pg (27.0-35.0); Mean Corpuscular Volume 86.5 fL (81-100); Platelet Count 217 bil/L (150-400)
[2016-10-19 10:12] LABS: Magnesium 2.3 mg/dL (1.6-2.6); Phosphorus 2.6 mg/dL (2.5-4.9)
--- NOTE | 2016-10-19 13:03 | PCM.PNNEPH ---
Subjective Date of Service Oct 19, 2016 Subjective (+) Afib with RVR, IV and O diltiazem given yesterday, better control, now in NSR. No CP/SOB/F/N/V. Exam Vital Signs Vital Sign - Last Date Time Temp Pulse Resp B/P Pulse Ox O2 Delivery O2 Flow Rate FiO2 10/19/16 10:57 66 10/19/16 09:20 37.6 18 118/67 96 Room Air Intake and Output 10/18/16 10/18/16 10/19/16 Cumulative From/Thru 15:00 23:00 07:00 10/16/16 10:52 - 10/19/16 05:53 Intake Total 550 ml 1115 ml 200 ml 6572 ml Output Total 700 ml 900 ml 1400 ml 6175 ml Balance -150 ml 215 ml -1200 ml 397 ml Intake Oral 550 ml 1000 ml 200 ml 4575 ml IV Total 115 ml 1997 ml Output Urine Total 700 ml 900 ml 1400 ml 6175 ml # Bowel Movements 0 11 Exam General appearance: Awake, alert, oriented x3. No acute distress. HEENT: Atraumatic. Moist mucous membranes. PERRLA, mild pallor. No icteric sclerae. No JVD. No lymphadenopathy. No thyroid enlargement. Heart: Regular rhythm. Normal S1, S2. No murmurs, rubs, or gallops. Lungs: Clear to auscultation bilaterally. No wheezing. No rhonchi. Abdomen soft, active bowel sounds. Nontender. Nondistended. No hepatosplenomegaly. Extremities: No edema, cyanosis or clubbing of fingers. Lab and Diagnostics Result Diagram: 10/19/1691310/19/16913 X-Rays, CTs and MRIs X-RAY CHEST ONE VIEW, PORTABLE IMPRESSION: Bibasilar atelectasis. Otherwise, no radiographic evidence of pathology. Dictated by: Walter Simmons M.D. on 10/16/2016 at 11:40 12-lead ECG Normal axis, left atrial enlargement, no ST changes Plan Impression 1. Syncope. - unclear etiology. - ? imdur and new BP meds. 2. Positive stress test with underlying disease of coronary artery disease, status post stenting. 3. Uncontrolled hypertension. 4. Stage 4 chronic kidney disease. Baseline serum creatinine around 2.9-3. 5. History of severe gastrointestinal bleed. s/p EGD and colonoscopy. 6. Atrial fibrillation with RVR. Plan: Continue current BP meds. Monitor HR closely since she takes coreg, diltiazem and clonidine. Start IVF hydration prior to LHC. Follow cardiology recommendation. Pt verbalized understanding risks and benefits of LHC. Tristen Thomson MD Oct 19, 2016 13:03
[2016-10-19] MEDS ORDERED: 0.9% Sodium Chloride 1,000 ML IV SCH (13:15)
--- NOTE | 2016-10-19 14:50 | PCM.PNMED ---
Subjective Date of Service Oct 19, 2016 Subjective BP better controlled today. reverted to sinus . Exam Vital Signs Vital Sign - Last Date Time Temp Pulse Resp B/P Pulse Ox O2 Delivery O2 Flow Rate FiO2 10/19/16 10:57 66 10/19/16 09:20 37.6 18 118/67 96 Room Air Intake and Output 10/18/16 10/18/16 10/19/16 Cumulative From/Thru 15:00 23:00 07:00 10/16/16 10:52 - 10/19/16 05:53 Intake Total 550 ml 1115 ml 200 ml 6572 ml Output Total 700 ml 900 ml 1400 ml 6175 ml Balance -150 ml 215 ml -1200 ml 397 ml Intake Oral 550 ml 1000 ml 200 ml 4575 ml IV Total 115 ml 1997 ml Output Urine Total 700 ml 900 ml 1400 ml 6175 ml # Bowel Movements 0 11 Exam General: No acute distress, well-developed, well-nourished, appropriately interactive HEENT: Normocephalic, atraumatic. External ears without defect. Pupils equal, round, and reactive to light and accommodation. Neck: Supple with full range of motion. No jugular venous distension. No bruits. No lymphadenopathy or thyromegaly. Cardiovascular: Regular rate and rhythm with no murmurs, rubs, or gallops appreciated Pulmonary: Clear to auscultation bilaterally with no crackles, wheezes, or rhonchi. Normal respiratory effort with no use of accessory muscles. Abdomen: Bowel tones present. Soft, nontender, nondistended. No hepatosplenomegaly or masses appreciated. Extremities: No clubbing, cyanosis, edema, or lymphadenopathy appreciated. Skin: Normal temperature, turgor, and texture; no rash, ulcers, or subcutaneous nodules appreciated. Neurological: Cranial nerves grossly intact. Normal muscle strength, tone, and bulk. Reflexes, coordination, and sensory function within normal limits. Psychiatric: Normal mood and affect. Alert and oriented to person, place, and time IVs and Medications Medications Reviewed: Medications were reviewed in detail Lab and Diagnostics Result Diagram: 10/19/1691310/19/16913 X-Rays, CTs and MRIs X-RAY CHEST ONE VIEW, PORTABLE IMPRESSION: Bibasilar atelectasis. Otherwise, no radiographic evidence of pathology. Dictated by: Walter Simmons M.D. on 10/16/2016 at 11:40 12-lead ECG Normal axis, left atrial enlargement, no ST changes Additional Diagnostics PROCEDURE: Exercise treadmill, converted to pharmacologic vasodilator stress and rest myocardial perfusion imaging with gating to assess ejection fraction and regional wall motion. RADIOPHARMACEUTICAL: Stress: 26.1 millicuries technetium-99m Tetrofosmin. Rest: 7.8 millicuries technetium-99m Tetrofosmin. INDICATIONS: THE PATIENT IS A 75-YEAR-OLD FEMALE WITH A HISTORY OF LEFT CIRCUMFLEX STENTING AND PAROXYSMAL ATRIAL FIBRILLATION WITH RECENT THROAT AND JAW DISCOMFORT WITH ASSOCIATED PRESYNCOPE. IMPRESSION: 1. Normal myocardial perfusion study although with concerning ECG changes for ischemia. 2. Subtle fixed proximal inferior wall perfusion defect that resolves on prone imaging most consistent with diaphragmatic attenuation and no other significant perfusion defects to suggest ischemia. 3. Vigorous LV systolic function without any focal wall motion abnormality with relatively small left ventricular volumes. 4. Moderately impaired exercise capacity with limiting fatigue and leg discomfort although with provocation of her clinical throat discomfort with associated ECG changes, more prominent with vasodilator therapy and quite concerning for possible ischemia with subtle ST elevation in AVL. While her myocardial perfusion images are completely normal, her ECG abnormalities are sufficient concern that further evaluation is recommended, possibly by stress echocardiography or cardiac catheterization. Dr. Rider was contacted with these results. Dictated by: Gerson Hoff M.D. on 10/14/2016 at 15:23 Assessment & Plan Nafisa Cesar is a 75 year old woman past medical history significant for coronary artery disease status post PCI with stent in the circumflex with a MIGUEL in 2012, followed by Dr. Rider, chronic kidney disease followed by Dr. Wren, who presented to the [facility] emergency department today due to a syncopal episode earlier today. # Syncopal episode , present on admission, active -Likely secondary to labile BP. increase of patient's blood pressure medication and orthostasis. Compounded with patient taking a nitroglycerin. -We will fluid resuscitate patient. -nephrology consulted -Telemetry monitoring -Fall precaution # Hypertensive urgency/labile BP/rebound HTN -Patient had multiple BP medication adjustments recently -Patient's 2 clonidine patches were removed removed on presentation ,patient developed rebound HTN,SBP in 200's . replaced clonidine back 10/17 -BP remains uncontrolled. Continue Coreg. - Required labetalol injections morning of 10/18 for BP 218/101. Amlodipine 2.5 mg started by nephrology 10/18.patient has history of leg swelling with amlodipine and listed as allergy . Hydralazine discontinued to avoid rebound tachycardia.patient had episode of raopid Afib 10/18 and hydralazine replaced. she had low Mg of 1.5 at the same time .Unable to use ACEI/ARB due to upcoming cardiac cath # Atrial fibrillation with rapid response on 10/18, present on admission, active -Patient not taking her anticoagulation at this time. EGD and C-scope unrevealing. Differ anticoagulation to cardiology after cardiac catheterization -Continue Carvedilol -Patient went into rapid A.fib today 10/18. Cardizem 20 mg IV push given, rate controlled. Went into rapid A. fib again, started Cardizem Xr 120mg daily. reverted to sinus night of 10/18. Discontinued hydralazine to avoid rebound tachycardia. # Coronary artery disease status post stenting in the circumflex with the DSE in 2012 with a positive stress test, present on admission, active -Patient has been evaluated by who would like her to be evaluated with an upper endoscopy as well as a colonoscopy due to past history of severe GI bleed on the rolled to -He believes that the risk of coronary angiography may outweigh the benefit due to the patient's chronic kidney disease and high risk for development of consciousness and his nephropathy. -However patient would benefit from a GI investigation before being initiated on dual antiplatelet therapy.EGD/colonoscopy today - cardiac cath on Thursday after optimizing BP and CKD per Dr Posadas # Past history of severe GI bleed - EGD and colonoscopy10/17 unrevealing -Guaiac negative # Acute kidney injury on Chronic kidney disease, present on admission, improving -Baseline Cr is around 2.9 -admission measurement was 3.27 -discontinue fluids today -NS at 75ml /h start at midnight for precath CODE STATUS: Full code disposition :1-2 days .going for EGD/colonoscopy today to r/o GI bleed.will need to optimize BP and CKD ,cardiac cath on Thursday patient needs coordinated service between GI,nephrology and cardiology .she has HTN urgency ,needs inpatient service VTE Prophylaxis: Sub-Q Heparin (Unfractionated) VTE Mechanical Devices: Intermittant Pneumatic CD Resuscitation Status: CPR: Attempt Resuscitation Garland Mora MD Oct 19, 2016 14:50
--- NOTE | 2016-10-19 16:24 | NUR ---
Social Work: Brief Note / Multidisciplinary Rounds Data: pt is a 75 y/o female admitted for presyncope, angina, anemia. [facility] Pt's insurnace is Medicare with for life supp. EMR reviewed. Pt discussed in rounds. PT recommending home, pt walking greater than 200 feet unassisted. MD states pt will go to cathead worker on 10/20, likely to d/c in 1-2 days. No d/c planning needs anticipated at this time. NURSE [facility] AID will continue to follow if needs arise. Assessment: Pt who is independent at baseline, currently capable of self care. Plan: Pt will d/c home via POV when medically stable, likely in 1-2 days per MD. N[facility] A[facility] will complete initial assessment at a later time due to low staffing. NURSE [facility] AID will continue to follow. TRACI Zimmerman
--- NOTE | 2016-10-19 17:27 | NUR ---
Nausea Early this afternoon, pt c/o of intense nausea. States she "gets it from taking the diltiazem, and thats why [I] stopped taking it at home". 4mg zofran administered, and pt states significant relief. Able to eat bowl of soup and tolerate well. Made aware that zofran is available for nausea, and to let the nurse know if it happens again, so nausea can be monitored.
[2016-10-20] VITALS (18 sets, daily range): BP systolic 115–178; BP diastolic 56–81; PULSE 53–72; RESP 10–18; O2SAT 94–98
[2016-10-20] MEDS: Heparin 5,000 Unit/mL Inj SUBQ SCH ×4 (00:30→23:46)
[2016-10-20] MEDS: 0.9% Sodium Chloride 1,000 ML IV SCH ×2 (01:12→14:20)
[2016-10-20] MEDS: Diltiazem CD 120 mg ER24 Capsule PO SCH (07:46)
[2016-10-20 09:56] LABS: BASOPHILS % (AUTO) 1.4 % (0-3); EOSINOPHILS % (AUTO) 6.5 % (0-5); MONOCYTES % (AUTO) 10.4 % (4-12); Mean Corpuscular Hemoglobin 29.1 pg (27.0-35.0); Mean Corpuscular Volume 86.6 fL (81-100); Platelet Count 204 bil/L (150-400)
[2016-10-20 10:26] LABS: Magnesium 1.9 mg/dL (1.6-2.6)
[2016-10-20] MEDS ORDERED: Heparin 10,000 Unit/1,000 mL NS Premix IV ONE (12:05)
[2016-10-20] MEDS ORDERED: Heparin 1,000 Units/500 mL NS Premix IV ONE (12:05)
[2016-10-20] MEDS ORDERED: Nitroglycerin 50,000 mcg/250 mL D5W Premix IV ONE ×2 (12:11→13:07)
[2016-10-20] MEDS ORDERED: fentaNYL-PF 50 mCg/mL 2 mL Inj ONE (13:06)
--- NOTE | 2016-10-20 14:12 | NUR ---
POST PROCEDURE NOTE RETURNED FROM [facility] RECEPTIONIST. SEE FLOW SHEET
--- NOTE | 2016-10-20 14:17 | NUR ---
Social Work-initial assessment/multidisciplinary rounds: Data:See initial assessment. Pt is a 75 y/o female who was admitted on 10/16/16 for angina per H&P. Pt's insurance is [employer] and [employer] and PCP is [facility]. EMR Reviewed. Pt's readmission score is 2. SW met with pt to discuss discharge planning, SW role explained. Pt is alert and oriented x3. Pt resides at home with her in [place] where she remains independent with ADLs. Pt drives and does not use any DME. Pt has no HH or SNF history. Pt has no predatory animal exterminator care insurance or VA benefits. SW discussed DPOA/ advanced directive, pt states she has all the paperwork, but has not completed this, SW encouraged pt to complete the paperwork. Pt has been up independent in her room. Pt to go for heart cath today. SW provided pt with discharge planning checklist booklet and encouraged her to call with any questions. SW provided phone number on white board in room. Pt's to provide transport home. No anticipated discharge needs. SW will continue to follow if needs arise. Assessment:pt who is independent at baseline. Plan:Pt to discharge home when medically stable via POV. No anticipated discharge needs. SW will continue to follow if needs arise. TRACI Fortune Addendum: 10/20/16 at 1422 by JOE ALEMAN Amended: Links added.
--- NOTE | 2016-10-20 15:43 | CS94 ---
[address] [address] DIAGNOSTIC CARDIAC CATHETERIZATION PATIENT: POLA MCCRARY : 1940 MR#: [id number] ADMIT: 10/16/2016 JOB ID: [id number] SERVICE DATE: 10/20/2016 PROCEDURE: Selective right and left coronary angiography, left heart catheterization. INDICATION: Recurrent chest pain. Abnormal stress test. PROCEDURAL DETAILS: The procedure was done via right femoral approach using a 6-Brazilian system. ANGIOGRAPHIC FINDINGS: 1. Left main: No significant disease. 2. LAD is a moderate caliber vessel. In its proximal part, it has about 40% lesion. In its mid part, it is partly intramyocardial. No critical stenosis is noted in the LAD. First major diagonal has an ostial 50% disease. 3. Ramus intermedius is a small vessel, free of any disease 4. Circumflex is a nondominant vessel. In its mid segment, it has a stent. Prior to stent, there is a short segment tubular stenosis of about 40% to 50%. No critical stenosis is noted. 5. Right coronary artery has 40% to 50% ostial disease. This appears to be unchanged from her previous angiogram. The rest of the right coronary artery is pristine. 6. Left heart catheterization revealed an LVEDP of 18. There was no gradient upon pullback, SUMMARY: No critical stenosis is identified. Modest disease. This is best treated medically.
--- NOTE | 2016-10-20 17:09 | NUR ---
Pt off unit Pt off unit at approx 1300 to roofing laborer. Taken in bed, family accompanying pt. Pt returned to floor at 1637. Report received from Surekha DICKENS. Pt alert and oriented. Denies pain. Groin site examined with CONI DICKENS. Site CDI, and soft. Distal pulses present. Remains on bedrest till 6pm and has IVF till 9pm tonight.
--- NOTE | 2016-10-21 00:46 | PCM.PNMED ---
Subjective Date of Service Oct 20, 2016 Subjective Patient was seen after her coronary artery catheterization. And she is in good spirits and hoping to go home tomorrow. She has no new complaints. Exam Vital Signs Vital Sign - Last Date Time Temp Pulse Resp B/P Pulse Ox O2 Delivery O2 Flow Rate FiO2 10/20/16 23:42 36.4 72 18 161/71 97 Room Air Intake and Output 10/20/16 10/20/16 10/21/16 Cumulative From/Thru 15:00 23:00 07:00 10/16/16 10:52 - 10/20/16 17:48 Intake Total 873 ml 891 ml 9122 ml Output Total 600 ml 8125 ml Balance 873 ml 291 ml 997 ml Intake Oral 120 ml 5275 ml IV Total 873 ml 771 ml 3847 ml Output Urine Total 600 ml 8125 ml # Bowel Movements 0 11 Exam General: Patient is in no distress. Laying supine, flat in bed after coronary artery catheterization. HEENT: Head is atraumatic and normocephalic. Eyes: Pupils are equally round and reactive to light and accommodation. Extraocular muscles are intact. Sclera are white, anicteric. Subconjunctival mucosa is pink. Ears and nose are unremarkable. Oropharynx: There is no mucosal lesions, there is no thrush, there is no pharyngitis. Neck: Is supple, there are no nodes, or masses or tenderness. Chest: Is clear to auscultation and percussion. There are no rales, rhonchi, wheezes or rubs. Heart: Rate, rhythm is regular. There is no murmur, rub or gallop. Abdomen: Good bowel sounds are present. Abdomen is soft, nontender, no organomegaly or masses were appreciated. Extremities: Are symmetrical and well perfused. There is no edema, there is no cellulitis, no rash. Neurologic: There are no focal neurological deficits. Cranial nerves II through XII are intact. There are no sensory or motor deficits. Psychiatric: Patients mood is calm and shows no sign of agitation. Genital: Deferred Rectal: Deferred Lab and Diagnostics Result Diagram: 10/20/16 0943 10/20/16 0943 X-Rays, CTs and MRIs X-RAY CHEST ONE VIEW, PORTABLE IMPRESSION: Bibasilar atelectasis. Otherwise, no radiographic evidence of pathology. Dictated by: Walter Simmons M.D. on 10/16/2016 at 11:40 12-lead ECG Normal axis, left atrial enlargement, no ST changes Additional Diagnostics PROCEDURE: Exercise treadmill, converted to pharmacologic vasodilator stress and rest myocardial perfusion imaging with gating to assess ejection fraction and regional wall motion. RADIOPHARMACEUTICAL: Stress: 26.1 millicuries technetium-99m Tetrofosmin. Rest: 7.8 millicuries technetium-99m Tetrofosmin. INDICATIONS: THE PATIENT IS A 75-YEAR-OLD FEMALE WITH A HISTORY OF LEFT CIRCUMFLEX STENTING AND PAROXYSMAL ATRIAL FIBRILLATION WITH RECENT THROAT AND JAW DISCOMFORT WITH ASSOCIATED PRESYNCOPE. IMPRESSION: 1. Normal myocardial perfusion study although with concerning ECG changes for ischemia. 2. Subtle fixed proximal inferior wall perfusion defect that resolves on prone imaging most consistent with diaphragmatic attenuation and no other significant perfusion defects to suggest ischemia. 3. Vigorous LV systolic function without any focal wall motion abnormality with relatively small left ventricular volumes. 4. Moderately impaired exercise capacity with limiting fatigue and leg discomfort although with provocation of her clinical throat discomfort with associated ECG changes, more prominent with vasodilator therapy and quite concerning for possible ischemia with subtle ST elevation in AVL. While her myocardial perfusion images are completely normal, her ECG abnormalities are sufficient concern that further evaluation is recommended, possibly by stress echocardiography or cardiac catheterization. Dr. Rider was contacted with these results. Dictated by: Gerson Hoff M.D. on 10/14/2016 at 15:23 Assessment & Plan Nafisa Cesar is a 75 year old woman past medical history significant for coronary artery disease status post PCI with stent in the circumflex with a MIGUEL in 2012, followed by Dr. Rider, chronic kidney disease followed by Dr. Wren, who presented to the [facility] emergency department today due to a syncopal episode earlier today. # Syncopal episode , present on admission, active -Likely secondary to labile BP. increase of patient's blood pressure medication and orthostasis. Compounded with patient taking a nitroglycerin. -We will fluid resuscitate patient. -nephrology consulted and appreciate your time and expertise. -Telemetry monitoring -Fall precautions # Hypertensive urgency/labile BP/rebound HTN -Patient had multiple BP medication adjustments recently -Patient's 2 clonidine patches were removed removed on presentation ,patient developed rebound HTN,SBP in 200's . replaced clonidine back 10/17 -BP remains uncontrolled. Continue Coreg. - Required labetalol injections morning of 10/18 for BP 218/101. Amlodipine 2.5 mg started by nephrology 10/18.patient has history of leg swelling with amlodipine and listed as allergy . Hydralazine discontinued to avoid rebound tachycardia.patient had episode of raopid Afib 10/18 and hydralazine replaced. she had low Mg of 1.5 at the same time .Unable to use ACEI/ARB due to upcoming cardiac cath # Atrial fibrillation with rapid response on 10/18, present on admission, active -Patient not taking her anticoagulation at this time. EGD and C-scope unrevealing. Differ anticoagulation to cardiology after cardiac catheterization -Continue Carvedilol -Patient went into rapid A.fib today 10/18. Cardizem 20 mg IV push given, rate controlled. Went into rapid A. fib again, started Cardizem Xr 120mg daily. reverted to sinus night of 10/18. Discontinued hydralazine to avoid rebound tachycardia. # Coronary artery disease status post stenting in the circumflex with the DSE in 2012 with a positive stress test, present on admission, active -Patient has been evaluated by who would like her to be evaluated with an upper endoscopy as well as a colonoscopy due to past history of severe GI bleed on the rolled to -He believes that the risk of coronary angiography may outweigh the benefit due to the patient's chronic kidney disease and high risk for development of consciousness and his nephropathy. -However patient would benefit from a GI investigation before being initiated on dual antiplatelet therapy.EGD/colonoscopy today - cardiac cath on Thursday after optimizing BP and CKD per Dr Posadas # Past history of severe GI bleed - EGD and colonoscopy10/17 unrevealing -Guaiac negative # Acute kidney injury on Chronic kidney disease, present on admission, improving -Baseline Cr is around 2.9 -admission measurement was 3.27 -discontinue fluids today -NS at 75ml /h start at midnight for precath - We will check BUN and creatinine post catheterization. CODE STATUS: Full code Disposition : We will reevaluate patient in a.m. and determine ability to discharge. Pain Evaluation: Adequate Pain Control VTE Prophylaxis: Sub-Q Heparin (Unfractionated) VTE Mechanical Devices: Intermittant Pneumatic CD Resuscitation Status: CPR: Attempt Resuscitation TeresoArnoldo MD Oct 21, 2016 00:46
[2016-10-21] MEDS: 0.9% Sodium Chloride 1,000 ML IV SCH (03:40)
[2016-10-21 05:28] VITALS: BP 174/68; PULSE 78; RESP 18; O2SAT 96
--- NOTE | 2016-10-21 05:55 | NUR ---
S/P Heart Cath / HTN Pt A&O X3, denies chest pain, Tele SR 60-70's. Right groin site dressing CDI, no hematoma or active signs of bleeding. Pedal pulses palpable. Pt denies abdomen or flank pain. Pt has been Hypertensive tonight with SBP's in the 150-170's, but remains asymptomatic, Pt denies dizziness, headaches, or vision problems. Pt up independently in room, gait steady. No c/o SOB, RA sats 96-97%.
[2016-10-21 07:42] VITALS: BP 186/84; PULSE 72; RESP 16; O2SAT 97
[2016-10-21] MEDS: Diltiazem CD 120 mg ER24 Capsule PO SCH (07:53)
[2016-10-21] MEDS: Heparin 5,000 Unit/mL Inj SUBQ SCH (07:57)
[2016-10-21 08:27] LABS: EOSINOPHILS % (AUTO) 3.7 % (0-5); MONOCYTES % (AUTO) 7.6 % (4-12); Mean Corpuscular Hemoglobin 28.6 pg (27.0-35.0); Mean Corpuscular Volume 87.3 fL (81-100); Platelet Count 212 bil/L (150-400)
[2016-10-21 08:28] LABS: BASOPHILS % (AUTO) 0.5 % (0-3)
[2016-10-21 09:38] LABS: Magnesium 1.8 mg/dL (1.6-2.6)
[2016-10-21 10:06] VITALS: PULSE 73
[2016-10-21 10:32] VITALS: BP 136/66; PULSE 71
--- NOTE | 2016-10-21 12:43 | PCM.PNNEPH ---
Subjective Date of Service Oct 21, 2016 Subjective S/p LHC, modest CAD 40-50% stenosis. Plan medical management. Kidney function relatively stable. In NSR, improved BP. No CP/SOB. Exam Vital Signs Vital Sign - Last Date Time Temp Pulse Resp B/P Pulse Ox O2 Delivery O2 Flow Rate FiO2 10/21/16 10:32 71 136/66 10/21/16 07:42 36.9 16 97 Room Air Intake and Output 10/20/16 10/20/16 10/21/16 Cumulative From/Thru 15:00 23:00 07:00 10/16/16 10:52 - 10/21/16 06:23 Intake Total 873 ml 891 ml 779 ml 9901 ml Output Total 600 ml 700 ml 8825 ml Balance 873 ml 291 ml 79 ml 1076 ml Intake Oral 120 ml 500 ml 5775 ml IV Total 873 ml 771 ml 279 ml 4126 ml Output Urine Total 600 ml 700 ml 8825 ml # Bowel Movements 0 11 Exam General appearance: Awake, alert, oriented x3. No acute distress. HEENT: Atraumatic. Moist mucous membranes. PERRLA, mild pallor. No icteric sclerae. No JVD. No lymphadenopathy. No thyroid enlargement. Heart: Regular rhythm. Normal S1, S2. No murmurs, rubs, or gallops. Lungs: Clear to auscultation bilaterally. No wheezing. No rhonchi. Abdomen soft, active bowel sounds. Nontender. Nondistended. No hepatosplenomegaly. Extremities: No edema, cyanosis or clubbing of fingers. Lab and Diagnostics Result Diagram: 10/21/16 0635 10/21/16 0635 X-Rays, CTs and MRIs X-RAY CHEST ONE VIEW, PORTABLE IMPRESSION: Bibasilar atelectasis. Otherwise, no radiographic evidence of pathology. Dictated by: Walter Simmons M.D. on 10/16/2016 at 11:40 12-lead ECG Normal axis, left atrial enlargement, no ST changes Additional Diagnostics PROCEDURE: Exercise treadmill, converted to pharmacologic vasodilator stress and rest myocardial perfusion imaging with gating to assess ejection fraction and regional wall motion. RADIOPHARMACEUTICAL: Stress: 26.1 millicuries technetium-99m Tetrofosmin. Rest: 7.8 millicuries technetium-99m Tetrofosmin. INDICATIONS: THE PATIENT IS A 75-YEAR-OLD FEMALE WITH A HISTORY OF LEFT CIRCUMFLEX STENTING AND PAROXYSMAL ATRIAL FIBRILLATION WITH RECENT THROAT AND JAW DISCOMFORT WITH ASSOCIATED PRESYNCOPE. IMPRESSION: 1. Normal myocardial perfusion study although with concerning ECG changes for ischemia. 2. Subtle fixed proximal inferior wall perfusion defect that resolves on prone imaging most consistent with diaphragmatic attenuation and no other significant perfusion defects to suggest ischemia. 3. Vigorous LV systolic function without any focal wall motion abnormality with relatively small left ventricular volumes. 4. Moderately impaired exercise capacity with limiting fatigue and leg discomfort although with provocation of her clinical throat discomfort with associated ECG changes, more prominent with vasodilator therapy and quite concerning for possible ischemia with subtle ST elevation in AVL. While her myocardial perfusion images are completely normal, her ECG abnormalities are sufficient concern that further evaluation is recommended, possibly by stress echocardiography or cardiac catheterization. Dr. Rider was contacted with these results. Dictated by: Gerson Hoff M.D. on 10/14/2016 at 15:23 Plan Impression 1. Syncope. - unclear etiology. - ? imdur and new BP meds. 2. Positive stress test with underlying disease of coronary artery disease, status post stenting. s/p LHC on 10/20 showed modest CAD, 40-50% stenosis. 3. Essential ypertension. 4. Stage 4 chronic kidney disease. Baseline serum creatinine around 2.9-3. 5. History of severe gastrointestinal bleed. s/p EGD and colonoscopy. 6. Atrial fibrillation with RVR. now in NSR. Plan: - Continue current BP meds. - Monitor HR closely since she takes coreg, diltiazem and clonidine. - Rec to follow up with her PCP within 1 week. 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 - Pt to keep BP and HR log. If she develops bradycardia, antihypertensive meds need to be adjusted. Tristen Thomson MD Oct 21, 2016 12:43
[2016-10-21 13:25] VITALS: BP 160/68; PULSE 64; RESP 18; O2SAT 97
--- NOTE | 2016-10-21 13:35 | NUR ---
Social Work: Readiness for Discharge/Multi-Disciplinary Rounds D: EMR reviewed. Pt is on day 5 of hospitalization. Per rounds, pt is medically stable and likely to discharge home today via POV - no SW discharge needs identified. No MD orders received. Pt up ambulating independently. A: Pt who is independent at baseline P: Pt likely to transport home today via POV. SW will continue to follow for needs or MD orders prior to discharge. TRACI Bruno
--- NOTE | 2016-10-21 15:19 | PCM.DIMED ---
Discharge Instructions Date of Service Oct 21, 2016 Dates of Hospitalization Oct 16, 2016 at 14:49 Discharge Diagnosis Discharge Diagnosis Syncope of unknown cause Diet Discharge Diet: Heart Healthy, Renal Diet Activity Discharge Activity: No restrictions (The patient may increase her activity gradually as tolerated.) Arnoldo Rider MD Oct 21, 2016 15:19
--- NOTE | 2016-10-21 15:23 | PCM.DIMED ---
Discharge Instructions Date of Service Oct 21, 2016 Dates of Hospitalization Oct 16, 2016 at 14:49 Discharge Diagnosis Discharge Diagnosis Syncope of unknown cause Diet Discharge Diet: Heart Healthy, Renal Diet Activity Discharge Activity: No restrictions (The patient may increase her activity gradually as tolerated.) Patient Instructions Follow-up with PCP in: 1 week (Patient to follow up with her PCP in one week.) Provider: Fior Wren MD Follow-up in: 1 week (For nephrology follow up.) Mid-level Provider (F9): Candelario Rider MD Follow-up with Mid-level in: 2 weeks (For Cardiology follow up.) Arnoldo Rider MD Oct 21, 2016 15:23
[2016-10-21] MEDS ORDERED: CLON1PAT2 TRANSDERM (15:30)
[2016-10-21] MEDS ORDERED: DILT120C83 PO (16:00)
--- NOTE | 2016-10-21 16:18 | NUR ---
Discharge pt ordered for discharge home with . pt aware and agreeable. discharge instructions and medications reviewed with patient and . pt informed of post heart cath site care. prescriptions given to patient. pt escorted to main lobby via wheelchair and all belongings at about 1618.
--- NOTE | 2016-10-21 16:19 | NUR ---
Social Work: Discharge D: EMR reviewed. Pt is on day 5 of hospitalization. Per rounds, pt is medically stable and likely to discharge home today via POV - no SW discharge needs identified. No MD orders received. Pt up ambulating independently. A: Pt who is independent at baseline P: Pt to transport home today via POV. SW will continue to follow for needs or MD orders prior to discharge. TRACI Bruno
--- NOTE | 2016-10-22 01:13 | PCM.DC.MED ---
Discharge Summary Date of Service Oct 21, 2016 Dates of Hospitalization Date of Hospital Admission Oct 16, 2016 at 14:49 Date of Discharge: Oct 21, 2016 Providers: Admitting Physician: Garland Mora MD Primary Care Physician: Tima Madrid Attending Physician: Arnoldo Rider MD Diagnosis at Time of Discharge Diagnosis at Time of Discharge Syncope of unknown cause Procedures XRay, CTs & MRIs X-RAY CHEST ONE VIEW, PORTABLE IMPRESSION: Bibasilar atelectasis. Otherwise, no radiographic evidence of pathology. Dictated by: Walter Simmons M.D. on 10/16/2016 at 11:40 ECG 12 Lead Normal axis, left atrial enlargement, no ST changes Other Diagnostics PROCEDURE: Exercise treadmill, converted to pharmacologic vasodilator stress and rest myocardial perfusion imaging with gating to assess ejection fraction and regional wall motion. RADIOPHARMACEUTICAL: Stress: 26.1 millicuries technetium-99m Tetrofosmin. Rest: 7.8 millicuries technetium-99m Tetrofosmin. INDICATIONS: THE PATIENT IS A 75-YEAR-OLD FEMALE WITH A HISTORY OF LEFT CIRCUMFLEX STENTING AND PAROXYSMAL ATRIAL FIBRILLATION WITH RECENT THROAT AND JAW DISCOMFORT WITH ASSOCIATED PRESYNCOPE. IMPRESSION: 1. Normal myocardial perfusion study although with concerning ECG changes for ischemia. 2. Subtle fixed proximal inferior wall perfusion defect that resolves on prone imaging most consistent with diaphragmatic attenuation and no other significant perfusion defects to suggest ischemia. 3. Vigorous LV systolic function without any focal wall motion abnormality with relatively small left ventricular volumes. 4. Moderately impaired exercise capacity with limiting fatigue and leg discomfort although with provocation of her clinical throat discomfort with associated ECG changes, more prominent with vasodilator therapy and quite concerning for possible ischemia with subtle ST elevation in AVL. While her myocardial perfusion images are completely normal, her ECG abnormalities are sufficient concern that further evaluation is recommended, possibly by stress echocardiography or cardiac catheterization. Dr. Rider was contacted with these results. Dictated by: Gerson Hoff M.D. on 10/14/2016 at 15:23 Brief History Patient is a 75-year-old woman with coronary artery disease, chronic kidney disease, GERD, and GI bleed on Xarelto in November 2015. Patient was seen for exercise treadmill stress test which resulted in recommendation of cardiac catheterization. Dr. Posadas was consulted, he would like to proceed with angiography however she is concerned about contrast-induced nephropathy and additionally her history of GI bleed. Patient is anemic with a hemoglobin of 9.7. Before patient is placed on dual antiplatelet therapy which would be required after angioplasty cardiology would like to confirm that she is not currently experiencing a GI bleed, and has no obvious anatomical findings that would predispose her to a GI bleed once placed on dual antiplatelet therapy. This plan was initiated yesterday however the patient had a syncopal episode after taking Imdur due to chest pain and dizziness. Patient reports persistent headache and shortness of breath on exertion but is otherwise feeling well. She is not currently having any chest pain, nausea, vomiting, or overt signs of bleeding. She does report recent dark stool however she was started on iron just last Thursday. She has had no hematochezia Previous GI bleed was in the setting of Xarelto in November 2015 at [facility]. She received 3 units of blood, she underwent upper and lower endoscopy both of which had no findings to explain bleeding source. No pill endoscopy was done. Hospital Course Nafisa Cesar is a 75 year old woman past medical history significant for coronary artery disease status post PCI with stent in the circumflex with a MIGUEL in 2012, followed by Dr. Rider, chronic kidney disease followed by Dr. Wren, who presented to the [facility] emergency department today due to a syncopal episode earlier today. # Syncopal episode , present on admission, active -Likely secondary to labile BP. increase of patient's blood pressure medication and orthostasis. Compounded with patient taking a nitroglycerin. -We will fluid resuscitate patient. -nephrology consulted and appreciate your time and expertise. -Telemetry monitoring -Fall precautions # Hypertensive urgency/labile BP/rebound HTN -Patient had multiple BP medication adjustments recently -Patient's 2 clonidine patches were removed removed on presentation ,patient developed rebound HTN,SBP in 200's . replaced clonidine back 10/17 -BP remains uncontrolled. Continue Coreg. - Required labetalol injections morning of 10/18 for BP 218/101. Amlodipine 2.5 mg started by nephrology 10/18.patient has history of leg swelling with amlodipine and listed as allergy . Hydralazine discontinued to avoid rebound tachycardia.patient had episode of raopid Afib 10/18 and hydralazine replaced. she had low Mg of 1.5 at the same time .Unable to use ACEI/ARB due to upcoming cardiac cath # Atrial fibrillation with rapid response on 10/18, present on admission, active -Patient not taking her anticoagulation at this time. EGD and C-scope unrevealing. Differ anticoagulation to cardiology after cardiac catheterization -Continue Carvedilol -Patient went into rapid A.fib today 10/18. Cardizem 20 mg IV push given, rate controlled. Went into rapid A. fib again, started Cardizem Xr 120mg daily. reverted to sinus night of 10/18. Discontinued hydralazine to avoid rebound tachycardia. # Coronary artery disease status post stenting in the circumflex with the DSE in 2012 with a positive stress test, present on admission, active -Patient has been evaluated by who would like her to be evaluated with an upper endoscopy as well as a colonoscopy due to past history of severe GI bleed on the rolled to -He believes that the risk of coronary angiography may outweigh the benefit due to the patient's chronic kidney disease and high risk for development of consciousness and his nephropathy. -However patient would benefit from a GI investigation before being initiated on dual antiplatelet therapy.EGD/colonoscopy today - cardiac cath on Thursday after optimizing BP and CKD per Dr Posadas # Past history of severe GI bleed - EGD and colonoscopy10/17 unrevealing -Guaiac negative # Acute kidney injury on Chronic kidney disease, present on admission, improving -Baseline Cr is around 2.9 -admission measurement was 3.27 -discontinue fluids today -NS at 75ml /h start at midnight for precath - We will check BUN and creatinine post catheterization. CODE STATUS: Full code Disposition : We will reevaluate patient in a.m. and determine ability to discharge. Exam Vital Signs (Last) Date Time Temp Pulse Resp B/P Pulse Ox O2 Delivery O2 Flow Rate FiO2 10/21/16 13:25 36.3 64 18 160/68 97 Room Air Exam General: Patient is in no distress. Laying supine, flat in bed in no apparent distress. HEENT: Head is atraumatic and normocephalic. Eyes: Pupils are equally round and reactive to light and accommodation. Extraocular muscles are intact. Sclera are white, anicteric. Subconjunctival mucosa is pink. Ears and nose are unremarkable. Oropharynx: There is no mucosal lesions, there is no thrush, there is no pharyngitis. Neck: Is supple, there are no nodes, or masses or tenderness. Chest: Is clear to auscultation and percussion. There are no rales, rhonchi, wheezes or rubs. Heart: Rate, rhythm is regular. There is no murmur, rub or gallop. Abdomen: Good bowel sounds are present. Abdomen is soft, nontender, no organomegaly or masses were appreciated. Extremities: Are symmetrical and well perfused. There is no edema, there is no cellulitis, no rash. Neurologic: There are no focal neurological deficits. Cranial nerves II through XII are intact. There are no sensory or motor deficits. Psychiatric: Patients mood is calm and shows no sign of agitation. Genital: Deferred Rectal: Deferred Test 10/16/16 10:55 10/18/16 13:11 10/19/16 09:14 10/21/16 06:35 Pro-B-Type Natriuretic Peptide 2202pg/mL (0-738) Troponin T < 0.010ug/L (0.0-0.011) Phosphorus Level 2.6mg/dL (2.5-4.9) White Blood Count 8.1th/mm3 (3.8-10.1) Red Blood Count 3.46mil/mm3 (3.90-5.20) Hemoglobin 9.9g/dL (12.0-15.6) Hematocrit 30.2% (35.0-46.0) Mean Corpuscular Volume 87.3fL (81-100) Mean Corpuscular Hemoglobin 28.6pg (27.0-35.0) Mean Corpuscular Hemoglobin Concent 32.8% (32.0-37.0) Red Cell Distribution Width 12.5% (12.3-15.4) Platelet Count 212bil/L (150-400) Neutrophils (%) (Auto) 77.0% (40-74) Lymphocytes (%) (Auto) 11.1% (14-46) Monocytes (%) (Auto) 7.6% (4-12) Eosinophils (%) (Auto) 3.7% (0-5) Basophils (%) (Auto) 0.5% (0-3) Sodium Level 137mEq/L (134-144) Potassium Level 4.8mEq/L (3.5-5.2) Chloride Level 106mEq/L (97-108) Carbon Dioxide Level 18mmol/L (18-29) Blood Urea Nitrogen 27mg/dL (8-27) Creatinine 2.03mg/dL (0.57-1.00) Estimat Glomerular Filtration Rate 34mL/min (>59) Glucose Level 101mg/dL (60-99) Calcium Level 8.5mg/dL (8.5-10.1) Magnesium Level 1.8mg/dL (1.6-2.6) Total Bilirubin 0.5mg/dL (0.0-1.2) Aspartate Amino Transf (AST/SGOT) 17U/L (0-50) Alanine Aminotransferase (ALT/SGPT) 7U/L (0-32) Alkaline Phosphatase 82U/L (25-165) Total Protein 6.0g/dL (6.4-8.4) Albumin 3.4g/dL (3.4-5.0) Discharge Medications Discharge Medications Aspirin (Aspirin) 81 Mg Tablet 81 MG PO DAILY (Reported) Atorvastatin (Lipitor) 20 Mg Tablet 20 MG PO (Reported) Carvedilol (Carvedilol) 25 Mg Tablet 25 MG PO BIDAC (Reported) Cetirizine HCl (Zyrtec) 10 Mg Capsule 10 MG PO DAILY (Reported) Cholecalciferol (Vitamin D3) (Vitamin D3) 2,000 Unit Tablet 2,000 UNIT PO DAILY (Reported) Clonidine 0.2 mg/day Patch (Catapres TTS-2) 1 Each Patch 1 PATCH TRANSDERM WEEKLY Replaces every Thursday. Prescribed by: GREG RIDER MD Diltiazem ER (Cardizem CD) 120 Mg Cap.er.24h 120 MG PO DAILY Prescribed by: GREG RIDER MD Ferrous Sulfate (Ferrous Sulfate) 324 Mg Tablet.dr 324 MG PO BID (Reported) Hydralazine (Hydralazine) 25 Mg Tablet 25 MG PO BID (Reported) Sodium Bicarbonate (Sodium Bicarbonate) 325 Mg Tablet 325 MG PO DAILY (Reported ) As needed Fluticasone Propionate (Flonase Allergy Relief) 50 Mcg/Actuation [place].susp 1 SPRAY NOSTRIL PRN For Congestion (Reported) Hydralazine (Hydralazine) 25 Mg Tablet 25 MG PO BID PRN PRN For HYPERtension ( Reported) Followup Plan Disposition: The patient is being discharged home with her . Discharge Diet: Heart Healthy, Renal Diet Discharge Activity: No restrictions (The patient may increase her activity gradually as tolerated.) Follow-up with PCP in: 1 week (Patient to follow up with her PCP in one week.) Provider: Fior Wren MD Follow-up in: 1 week (For nephrology follow up.) Mid-level Provider: Candelario Rider MD Follow-up with Mid-level in: 2 weeks (For Cardiology follow up.) Time spent Time spent on discharging this patient was greater than 35 minutes, over half of which was involved in counseling and coordination of care. Arnoldo Rider MD Oct 22, 2016 01:13
== END 2016-10-21 16:20 | disposition home or self-care (01) | DRG 287 ==
LOC: SED 10:49 → MPC 14:49 → OBSVTOIN 14:49
PROVIDERS: ADMIT Internal Medicine; ATTEND Internal Medicine
PROC: 0DJ08ZZ Inspection of Upper Intestinal Tract, Via Natural or Artificial Opening Endoscopic (ICD-10-PCS; 2016-10-17)
PROC: 0DJD8ZZ Inspection of Lower Intestinal Tract, Via Natural or Artificial Opening Endoscopic (ICD-10-PCS; 2016-10-17)
PROC: 4A023N7 Measurement of Cardiac Sampling and Pressure, Left Heart, Percutaneous Approach (ICD-10-PCS; principal; 2016-10-20)
PROC: B2111ZZ Fluoroscopy of Multiple Coronary Arteries using Low Osmolar Contrast (ICD-10-PCS; 2016-10-20)
DX: I16.0 Hypertensive urgency (principal); N17.9 Acute kidney failure, unspecified; N18.4 Chronic kidney disease, stage 4 (severe); I12.9 Hypertensive chronic kidney disease with stage 1 through stage 4 chronic kidney disease, or unspecified chronic kidney disease; I25.10 Atherosclerotic heart disease of native coronary artery without angina pectoris; I48.0 Paroxysmal atrial fibrillation; K21.9 Gastro-esophageal reflux disease without esophagitis; Z95.5 Presence of coronary angioplasty implant and graft; D64.9 Anemia, unspecified; R55 Syncope and collapse